=== PATIENT | female | born 1945 | race Caucasian/White ===

== ENCOUNTER 2020-10-28 16:20 | Inpatient (IN) | payer MEDICARE, SELFPAY ==
[2020-10-28] VITALS (16 sets, daily range): BP systolic 99–164; BP diastolic 54–88; PULSE 85–111; RESP 12–25; TEMP 36.2–36.7; O2SAT 71–97; BMI 27.8; BMI 26.6
--- NOTE | 2020-10-28 16:41 | EKG12_ITS ---
Test Reason : SOB Blood Pressure : / mmHG Vent. Rate : 099 BPM Atrial Rate : 099 BPM P-R Int : 132 ms QRS Dur : 082 ms QT Int : 358 ms P-R-T Axes : 063 085 086 degrees QTc Int : 459 ms Normal sinus rhythm Low voltage QRS Nonspecific ST abnormality Abnormal ECG Confirmed by DESTINY MOON, TRIPP ([id number]), digital editor JACQUES PATEL ([id number]) on 11/04/2020 7:03:20 AM Referred By: MÓNICA Confirmed By:FREIDA DIXON MD
--- NOTE | 2020-10-28 16:43 | ED.VISSUMM ---
- ER Visit Summary Date of Service: 10/28/20 Chief Complaint: [Shortness of breath] History of Present Illness: The patient is a 75 F [presents to the emergency department complaint shortness of breath that she states started today. Patient states that she only got sick today. She denies fever or significant cough. She is normally on some home O2 due to history of some COPD. Patient is not a very good historian. EMS apparently told nursing staff that patient is on day 10 of Covid. Patient denies any chest pain. Patient is currently on a nonrebreather and is doing better. Apparently her O2 sat was in the 50s on EMS arrival.] Physical Examination: [HEENT-PERRLA, EOMI. Cranial nerves II through XII grossly intact. TMs clear. Mucous membranes moist. No adenopathy. Cardiovascular-regular rate and rhythm without murmur or ectopy Lungs-good aeration bilaterally. Patient has some faint expiratory wheezes noted. Few rales in the bases. Mild tachypnea. No accessory muscle use or retractions. Abdomen-normoactive bowel sounds, soft, nontender, no rebound or rigidity, no peritoneal signs. Extremities-intact ?4, normal range of motion, normal pulses, atraumatic] Test Results: [EKG obtained on arrival shows sinus rhythm with a ventricular rate of 99 bpm with some nonspecific ST changes noted. Blood gas obtained on nonrebreather mask showed a pH of 7.459 CO2 of 35 PaO2 of 74 bicarb is 25 and O2 sat of 95%. CBC with differential showed a white count of 17.3, hemoglobin 13.5, hematocrit 40, platelets 506. Chemistries unremarkable. Troponin was 0.103. D-dimer was elevated 2.09. Chest x-ray interpreted by myself is bilateral faint infiltrates and radiology in agreement with their interpretation. CTA of the chest ordered and results will be pending] Emergency Department Course and Treatment: [Line established on arrival. Patient was given albuterol nebulizer 4 puffs and started on Solu-Medrol 125 mg IV. Patient started on Levaquin 750 mg IV. Patient was attempted to be weaned off nonrebreather mask unsuccessfully and was placed on BiPAP. Was discussed with hospitalist will evaluate patient for admission] Treatment Plan: [Admit to ICU] Disposition: [Admit] Impression: [COVID-19 pneumonia Hypoxemia/respiratory failure COPD exacerbation] This note was generated with [facility] dictation software. It may contain incorrect words, spelling, and punctuation that were not noted in review of the chart prior to signing ED Disposition - Plan for ED Patient: Referrals: NOT,DEFINED [NON-STAFF] -
--- NOTE | 2020-10-28 16:45 | NURSING ---
NO OLD EKGS
--- NOTE | 2020-10-28 16:58 | RAD_ITS ---
STUDY: X-RAY CHEST REASON FOR EXAM: Female, 75 years old. DAY 10 OF COVID, INCREASED SOB AND WEAKNESS AT HOME, FAMILY STATED PT LIPS AND FINGERS WERE CYANOTIC. TECHNIQUE: Single AP portable view of the chest. COMPARISON: None. FINDINGS: There is elevation the right hemidiaphragm. There is interstitial and groundglass increased opacities of the lungs. There is right lower lung granuloma. There is no demonstrated pleural abnormality. Normal size heart. Normal mediastinum and anju. Normal visualized pulmonary arteries. Normal visualized aortic arch and descending thoracic aorta. There is demineralization of the osseous structures. Normal visualized ribs, clavicles, and shoulders. There is no demonstrated abnormality of the visualized soft tissue structures of the upper abdomen. RAD/Chest 1 View (Portable) IMPRESSION: Interstitial infiltrates or edema. Electronically Signed: Tyler Vu MD at 18:00 EST , Service support ,
[2020-10-28] MEDS: MethylPREDNISolone 125 MG/2 ML Vial IV (17:31)
[2020-10-28 17:36] LABS: Base Excess 1 mmol/L (-2 to +2); Bicarbonate 25.2 mmol/L (22-26); Blood Gas Specimen Type ART; FI02 100; O2 Delivery Device NRB; PO2 74 mmHG (75-100); SITE R Brach; SO2 96 % (95-99); Total Carbon Dioxide 26 mmol/L; pCO2 35.5 mmHg (35-45); pH 7.46 (7.35-7.45)
[2020-10-28 17:50] LABS: Absolute Lymphocyte Count 1.07 X10^3/uL (0.83-4.51); Absolute Neutrophil Count 14.2 X10^3/uL (2.0-7.7); Basophil# 0.07 X10^3/uL; Basophil% 0.4 % (0-1); Eosinophil# 0.01 X10^3/uL; Eosinophils% 0.1 % (0-5); Hematocrit 40.2 % (37-47); Hemoglobin 13.5 g/dL (12.0-15.0); Lymphocyte # 1.07 X10^3/ul (4.0); Lymphocyte % 6.2 % (19-41); Mean Corp Hgb Conc 33.6 g/dL (32-36); Mean Corpuscular Hgb 31.3 pg (27.0-32.0); Mean Corpuscular Volume 93.3 fL (81-99); Mean Platelet Vol. 9.9 fl (6.2-12.0); Monocyte# 1.71 X10^3/uL; Monocyte% 9.9 % (0-10); NRBC Flagged by Analyzer 0 % (0-5); Neutrophil % 82.1 % (47-70); POSITIVE DIFFERENTIAL YES; Platelet Count 506 K/mm3 (150-450); RBC Distribution Width CV 13.8 % (11.6-14.6); RBC Distribution Width SD 47.6 fl (35.1-43.9); Red Blood Count 4.31 M/mm3 (4.2-5.4); White Blood Count 17.3 K/mm3 (4.4-11.0)
[2020-10-28 17:51] LABS: Differential Indicated SCAN CRITERIA MET
[2020-10-28 18:04] LABS: D-Dimer Quantitative (DVT/PE) 2.09 FEU/ug/m (0.27-0.49)
--- NOTE | 2020-10-28 18:12 | HP.PCM_ITS ---
Problem List (1) Acute and chronic respiratory failure with hypoxia Status: Acute (2) Pneumonia due to COVID-19 virus Status: Acute (3) Cardiac enzymes elevated Status: Acute (4) Anxiety and depression Status: Chronic (5) Chronic kidney disease (CKD), stage III (moderate) Status: Suspected Qualifiers: Chronic kidney disease stage 3 subtype: unspecified whether 3a or 3b Qualified Code(s): N18.30 - Chronic kidney disease, stage 3 unspecified (6) Former tobacco use Status: Chronic (7) Cognitive impairment Status: Suspected History of Present Illness Date of Admission: 10/28/20 Chief Complaint: COVID, possibly day with cough, dyspnea The patient is a 75 y/o F w/ PMHx: Chronic COPD with Chronic Hypoxic Respiratory Failure (2L q HS), Anxiety and Depression, Former Tobacco use (quit 30 years prior), suspected underlying mild cognitive impairment per discussion with family who presents to the [facility] ED on 10/28/20 with history of diagnosis of Covid approximately 10 days prior, onset of symptoms initially Monday with diagnosis on the Monday following with fever, chills, headaches, body aches, mildly sore mouth, cough and dyspnea which progressively worsening prompting PCP outpatient evaluation with initiation of prednisone 5-day course, eventually requiring 2 additional days but patient noted ongoing dyspnea and family noted patient to be extremely hypoxic therefore prompted ED evaluation. Patient's grandson who does live with her and helps take care of her has also been ill and was diagnosed with Covid previously but stayed away for approximately 10 days per discussion. There are several other family members are also Covid positive. Patient denies having had any nausea, emesis, diarrhea, abdominal cramping or pain or any alteration to her sense of taste or smell. Work-up in the ED included T 97.9, heart rate 95, BP 132/69, respiratory rate 24, initially 90% on a nonrebreather 12 L with eventually transition to 6 L nasal cannula however patient was 71% with eventual BiPAP needs, currently 97% on 40% FiO2 BiPAP, CBC with WC 17.3, hemoglobin 13.5, platelet 506 with left shift, D-dimer 2.09, ABG with pH 7.46, PO2 74, PCO2 35.5, BMP with BUN/creatinine 24/1.16, glucose 131, lactic acid 1.3, troponin 0.103, Covid PCR pending as initially patient was confused about her Covid status and timeline but now that is been clarified specifically with family and patient was tested at the [facility] urgent care, blood culture x2 pending per ED, chest x-ray with interstitial infiltrates and/or edema bilaterally however suspect likely bilateral pneumonia, CTPA pending given elevated D-dimer, EKG with sinus tachycardia with no acute evidence of ischemia with nonspecific changes. In the ED patient administered Levaquin, albuterol, Solu-Medrol. 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 Smoking Status: Former smoker - Quit ~ 30 years ago, prior to this ~ 1 ppd cigarette usage since teenager. Tobacco Use: Non-smoker Alcohol: None Drugs: None - *Family History Maternal History Items: Cancer, Hypertension Paternal History Items: Hypertension Review of Systems Constitutional: Reports: Anorexia, Chills, Fever, Malaise, Weakness, Fatigue. Denies: Weight Change HEENT: Reports: Head Aches, Sore Throat. Denies: Sinus Congestion, Sinus Drainage Cardiovascular: Denies: Chest Pain, Palpitations Respiratory: Reports: Cough, Shortness of Breath, Shortness of breath at rest, Shortness of breath upon exertion, Wheezing. Denies: Sputum production Gastrointestinal: Denies: Abdominal Pain, Nausea, Vomiting Genitourinary: Denies: Dysuria Musculoskeletal: Reports: Joint Pain, Muscle pain. Denies: Joint Tenderness Skin: Denies: Rash, Wounds Neurological: Reports: Confusion. Denies: Focal weakness, Numbness, Tingling Psychiatric: Reports: Anxiety, Depression. Denies: Homicidal Ideations, Suicidal Ideations Hematologic/ Lymphatic: Reports: Easy Bruising, Easy Bleeding VTE Information - Inpt Only VTE Present on Admission: No VTE Mechan Device Prophylaxis: SCD's VTE Pharm Prophylaxis ordered?: Yes Subjective: Seated upright in the ED bed, fatigued and ill-appearing, evident respiratory distress, BiPAP in place. Objective: Physical Examination: General: awake, alert, oriented to self, recent events, does admit that she has confusion which has been worsening over the last several months, remains cooperative, seated upright in the ED bed, fatigued and ill-appearing, evident respiratory distress, BiPAP in place. Skin: normal color, turgor, no icterus, cyanosis. HEENT: AT/NC, EOMI, PERRLA, dry MM, no carotid bruits or JVD noted, difficult assessment given BiPAP being placed. Lungs: Significantly diminished breath sounds throughout, greater bases, increased respiratory rate and effort, evident respiratory distress, BiPAP being placed, no rales, ronchi or wheezing. Heart: Mildly tachycardic with regular rhythm; no gallop, rub audible. Abdomen: soft, overweight, NTTP, ND, normal BS, no HSM. Extremities: no cyanosis, clubbing, or edema. Neurological: patient awake, alert, oriented as noted; cognitive function diminished baseline with likely underlying cognitive impairment, worsened from baseline given acute presentation; pupils equally reactive to light and accomodation; cranial nerves II-XII grossly normal, moving all 4 extremities, no focal deficits, strength severely globally decreased secondary to acute presentation. Psychiatric: affect appears fatigued, ill-appearing, evident respiratory distress as noted, no acute evidence of depressive or anxiety feelings. - Physical Exam Vitals/I&O's: Vital Signs Temp Pulse Resp BP Pulse Ox 97.9 F 95 24 H 132/69 H 93 10/28/20 17:26 10/28/20 17:26 10/28/20 17:26 10/28/20 17:26 10/28/20 17:52 Oxygen Flow Rate (L/min) 15 Oxygen Delivery Method Non-Rebreather Weight: 167 lb 5.294 oz Body Mass Index (BMI) 27.8 Laboratory Results 10/28/20 17:30: Specimen Type ART, Sample Site R Brach, pH 7.46 H, Bicarbonate Actual 25.2, Total CO2 26, Base Excess 1, O2 Saturation 96, O2 % 100, ABG pCO2 35.5, ABG pO2 74 L, O2 Delivery Device NRB 10/28/20 17:41: WBC 17.3 H, RBC 4.31, Hgb 13.5, Hct 40.2, MCV 93.3, MCH 31.3, MCHC 33.6, RDW Std Deviation 47.6 H, RDW Coeff of Jhoan 13.8, Plt Count 506 H, MPV 9.9, Immature Gran % (Auto) 1.300 H, Neut % (Auto) 82.1 H, Lymph % (Auto) 6.2 L, [place] % (Auto) 9.9, Eos % (Auto) 0.1, Baso % (Auto) 0.4, Absolute Neuts (auto) 14.2 H, Absolute Lymphs (auto) 1.07, Nucleated RBC % 0 10/28/20 17:41: D-Dimer Quant (PE/DVT) 2.09 H* 10/28/20 17:41: Sodium Cancelled, Potassium Cancelled, Chloride Cancelled, Carbon Dioxide Cancelled, Anion Gap Cancelled, BUN Cancelled, Creatinine Cancelled, Estim Creat Clear Calc Cancelled, Est GFR (MDRD) Af Amer Cancelled, Est GFR (MDRD) Non-Af Cancelled, BUN/Creatinine Ratio Cancelled, Glucose Cancelled, Calcium Cancelled, Troponin I Cancelled 10/28/20 17:41: Lactic Acid Pending Current Medications Levofloxacin (Levaquin Iv) 750 mg in 150 mls @ 100 mls/hr IV X1 ONE Stop: 10/28/20 19:31 Assessment/Plan All Active Problems Acute and chronic respiratory failure with hypoxia (Acute) Pneumonia due to COVID-19 virus (Acute) Cardiac enzymes elevated (Acute) The patient is a 75 y/o F w/ PMHx: Chronic COPD with Chronic Hypoxic Respiratory Failure, Anxiety and Depression, Former Tobacco use, suspected underlying mild cognitive impairment per discussion with family who presents to the [facility] ED on 10/28/20 with history of diagnosis of Covid approximately 10 days prior, onset of symptoms initially Monday with diagnosis on the Monday following with fever, chills, headaches, body aches, mildly sore mouth, cough and dyspnea which progressively worsening prompting PCP outpatient evaluation with initiation of prednisone 5-day course, eventually requiring 2 additional days but patient noted ongoing dyspnea. 1. Acute on Chronic Hypoxic Respiratory Failure secondary to Bilateral Pneumonia secondary to Acute Viral Syndrome, COVID-19: We will admit to the ICU, maintain on Covid precautions, continue BiPAP therapy, continue MDI inhaler, PRN albuterol, initiate IV Decadron as well as IV remdesivir given severity of current presentation but will defer further alterations to infectious disease, critical care/pulmonary physician also consulted, HOB, IS parameters w/ pending sputum cultures, respiratory viral panel and urine antigens, will obtain procalcitonin, CRP, CPK, Ferritin, LDH, Alk phos/AST/ALT, cycle cardiac enzymes given elevation upon presentation although likely demand, continue supportive care including q 2 hour turning including prone given no prone bed availability and judicious hydration, closely monitor for worsening status for ARDS and multiorgan failure. Pending CTPA and if noted pulmonary emboli will transition from Lovenox to heparin drip. 2. Indeterminate cardiac enzyme: Admission troponin 0 0.103, likely demand secondary to #1 with notable hypoxia, will cycle cardiac enzymes, maintain on telemetry monitoring, initiate aspirin therapy, defer immediate echocardiogram given status #1 and likely deferral but if enzymes further increase would request. 3. Chronic hypoxic respiratory failure with chronic COPD: Patient normally only on 2 L nightly however given presentation is noted continue treatment #1, will maintain on as needed albuterol inhaler and scheduled Advair inhaler, clarifying home inhaler regimen with family. 4. Anxiety and depression: We will continue patient home Wellbutrin and BuSpar regimen once clarified. 5. Suspected chronic Kidney Disease Stage III: Admission BUN/Cr 24/1.16, baseline renal function unclear but suspect likely chronic component, repeat CMP in AM. 6. Former tobacco use: Encourage continued tobacco cessation. 7. Suspected underlying chronic mild cognitive impairment, possible dementia: Family notes patient has had several months of increased confusion, suspect likely underlying cognitive impairment, no formal outpatient evaluation as of yet, complicates presentation. 8. DVT prophylaxis: SCDs, Lovenox per Covid protocol however if CTPA notable would initiate heparin drip. 9. CODE status: Patient FIDELIA is her daughter Elvira Villafana and living will is currently in place. Discussed CODE status at length including difference between FULL code, DNR-CCA and DNR-CC status. Following discussions about the differences in these status, requested DNR CCA, no intubation status. Patient status was frankly discussed with family and they understand that she is in critical condition. Advanced Care Planning Face to Face Time: 16 minutes. Inpatient E&M: 97524 Init Hosp L3 Procedures: [id number] Advncd Care Plan 30 Min
[2020-10-28 18:20] LABS: Lactic Acid 1.3 mmol/L (0.4-1.9)
[2020-10-28 18:28] LABS: Differential Comment SCANNED
[2020-10-28] MEDS: levoFLOXacin IV 750 MG/150 ML BAG 100 MG IV (18:28)
[2020-10-28 18:38] LABS: Anion Gap 6 (5-15); BUN 24 mg/dL (7-18); BUN/Creat Ratio 20.7 RATIO (10-20); Calcium,Total 9.3 mg/dL (8.5-10.1); Chloride 101 mmol/L (98-107); Creatinine, Serum 1.16 mg/dL (0.55-1.02); EST Glomerular Filtration Rate 49 mL/min (>60); Est Glom Filt Rate - Afr Amer 59 mL/min (>60); Estimated Creatinine Clearance 38.87 ml/min; Glucose 131 mg/dL (74-106); Potassium 4.4 mmol/L (3.5-5.1); Sodium Level 136 mmol/L (136-145)
--- NOTE | 2020-10-28 18:55 | CT_ITS ---
We are attempting to reach an attending provider to discuss findings. An addendum with communication details will be sent when the communication is complete. STUDY: CTA CHEST REASON FOR EXAM: Female, 75 years old. +COVID. INCREASE SOB. HX OF COPD RADIATION DOSAGE (If Supplied By Facility): CTDIvol = ( 15.98 ) mGy, DLP = ( 435.78 ) mGycm TECHNIQUE: The examination was performed with the intravenous administration of 100mL Isovue-370. Post-processing of the angiographic images was performed, with multiplanar reformation and 3D reconstruction. Individualized dose optimization techniques were used for this CT. COMPARISON: Chest x-ray. FINDINGS: Normal enhancement of the main pulmonary artery and right and left pulmonary arteries. There are filling defects involving the peripheral pulmonary arteries on the right and left consistent with embolism , including series 2 image 102/244 . There is atherosclerotic tortuosity of the aortic arch and descending thoracic aorta. There is no demonstrated aortic dissection. Normal heart and pericardium. Normal mediastinum. There are calcified right hilar lymph nodes. Normal visualized trachea and bronchi. The lungs are well expanded. There is emphysema of the lungs. There are moderate interstitial septal groundglass increased opacities. There are lower lung granulomas. Normal pleura. Normal chest wall structures. There are degenerative changes of thoracic spine. There is 1.9 cm left adrenal nodule. There is small hiatal hernia. CT/CTA Chest W/WO Contrast IMPRESSION: Pulmonary embolism. Emphysema with interstitial edema or infiltrates. Electronically Signed: Tyler Vu MD at 19:28 EST , Service support ,
--- NOTE | 2020-10-28 19:54 | CPS ---
Pt. going to CT at this time. BiPAP put on 'stand-by' mode for the time being. Non-rebreather placed on pt., with no respiratory stress noted. Pt. SpO2 = 96% at this time, and she prefers wearing non-rebreather mask at this time.
[2020-10-28 20:15] LABS: Probe Check PASS; Specimen Processing Control PASS
[2020-10-28 20:26] LABS: Partial Thromboplast Time 31.4 Seconds (24.1-36.2)
[2020-10-28] MEDS: Heparin Injection (Vial) 5,000 UNIT/ML VIAL 5000 UNIT IV (20:47)
[2020-10-28] MEDS: HEPARIN/D5w 25,000 UNITS 25,000 UNITS/250 ML IV.SOLN. 11 UNITS IV (20:47)
[2020-10-28 21:56] LABS: Alkaline Phosphatase 112 U/L (45-117)
[2020-10-28 22:00] LABS: AST(SGOT) 44 U/L (15-37); Alanine Aminotransfer ALT/SGPT 78 U/L (13-56); Albumin, Serum 2.4 g/dL (3.2-5.0); Alkaline Phosphatase 112 U/L (45-117); Bilirubin, Direct 0.31 mg/dL (0.00-0.30); Ferritin 721 ng/mL (8-252); Globulin 4.7 g/dL (2.2-4.2); LDH 327 U/L (84-246); Magnesium 2.5 mg/dL (1.6-2.6); Protein, Total 7.1 g/dL (6.4-8.2)
[2020-10-28 22:10] LABS: BNP,B-Type NATRIURETIC PEPTIDE 58.4 pg/mL (0-100)
[2020-10-28] MEDS: 0.9% Saline Lock 10 ML Syringe IV (22:31)
[2020-10-28] MEDS: Famotidine 20 MG Tablet PO (22:56)
[2020-10-28] MEDS: dexAMETHasone 4 MG/ML Vial 6 MG IV (22:56)
[2020-10-28 23:23] LABS: Procalcitonin 0.25 ng/mL (0.00-0.09)
[2020-10-29] VITALS (26 sets, daily range): BP systolic 111–166; BP diastolic 53–103; PULSE 75–104; RESP 12–26; TEMP 36.6–37.2; O2SAT 89–96
--- NOTE | 2020-10-29 00:30 | NURSING ---
Verified home medications with patient's daughter, Pauly.
--- NOTE | 2020-10-29 00:37 | CPS ---
Pt on 15L HFNC, SpO2 95%
[2020-10-29 02:57] LABS: Partial Thromboplast Time 72.6 Seconds (24.1-36.2)
[2020-10-29 05:58] LABS: Absolute Lymphocyte Count 0.52 X10^3/uL (0.83-4.51); Absolute Neutrophil Count 9.4 X10^3/uL (2.0-7.7); Basophil# 0.02 X10^3/uL; Basophil% 0.2 % (0-1); Hematocrit 37.8 % (37-47); Hemoglobin 12.4 g/dL (12.0-15.0); Lymphocyte # 0.52 X10^3/ul (4.0); Lymphocyte % 4.9 % (19-41); Mean Corp Hgb Conc 32.8 g/dL (32-36); Mean Corpuscular Hgb 31.2 pg (27.0-32.0); Mean Platelet Vol. 8.9 fl (6.2-12.0); Monocyte# 0.44 X10^3/uL; Monocyte% 4.2 % (0-10); NRBC Flagged by Analyzer 0 % (0-5); Neutrophil # 9.38 X10^3/uL (2.7-7.7); Neutrophil % 89.3 % (47-70); POSITIVE DIFFERENTIAL YES; Platelet Count 435 K/mm3 (150-450); RBC Distribution Width CV 13.1 % (11.6-14.6); RBC Distribution Width SD 46.3 fl (35.1-43.9); Red Blood Count 3.98 M/mm3 (4.2-5.4); White Blood Count 10.5 K/mm3 (4.4-11.0)
[2020-10-29 05:59] LABS: Differential Indicated SCAN CRITERIA MET
[2020-10-29 06:21] LABS: ALB/GLOB Ratio 0.5 RATIO (0.9-2.4); AST(SGOT) 31 U/L (15-37); Alanine Aminotransfer ALT/SGPT 65 U/L (13-56); Albumin, Serum 2.1 g/dL (3.2-5.0); Alkaline Phosphatase 103 U/L (45-117); Anion Gap 7 (5-15); BUN 21 mg/dL (7-18); BUN/Creat Ratio 22.6 RATIO (10-20); Calcium,Total 8.5 mg/dL (8.5-10.1); Chloride 100 mmol/L (98-107); Cholesterol 174 mg/dL (200); Creatinine, Serum 0.93 mg/dL (0.55-1.02); EST Glomerular Filtration Rate 63 mL/min (>60); Est Glom Filt Rate - Afr Amer 76 mL/min (>60); Estimated Creatinine Clearance 48.48 ml/min; Globulin 4.6 g/dL (2.2-4.2); Glucose 181 mg/dL (74-106); High Density Lipoprotein 58 mg/dL; Potassium 4.4 mmol/L (3.5-5.1); Protein, Total 6.7 g/dL (6.4-8.2); Sodium Level 136 mmol/L (136-145); Triglycerides 100 mg/dL; Very Low Density Lipoprotein 20 mg/dL (5-40)
--- NOTE | 2020-10-29 06:24 | CON.PCM_ITS ---
Reason for Consult Date of Consultation: 10/29/20 Reason for Consultation: Acute hypoxemic respiratory failure History of Present Illness: The patient is a 75-year-old female, with a history as outlined below, who presented to the emergency department on October 28 with complaints of shortness of breath and hypoxemia. The patient has an apparent history of COPD of unknown severity along with chronic hypoxemic respiratory failure with a baseline 2 L/min oxygen requirement, primarily at night. The patient was initially diagnosed with Covid 10 days ago and was managed as an outpatient by her PCP with a 1 week course of prednisone. Despite this, the patient remained symptomatic. The patient does report that she is on Symbicort and Spiriva for her COPD, but does not follow with a pastoral assistant on an outpatient basis. On presentation to the emergency department, the patient was noted to be afebrile but was tachycardic and tachypneic. She was also hypoxemic, initially requiring a nonrebreather mask. Initial laboratory evaluation revealed an elevated white blood cell count to 17,000. D-dimer was elevated to 2.09. Chemistry profile was notable for a creatinine of 1.16. Lactate was within normal limits. AST and ALT were mildly increased to 44 and 78, respectively. Coronavirus PCR was positive. CTA chest was completed which revealed bilateral pulmonary emboli, along with bilateral emphysematous changes and interstitial groundglass changes. The patient was started on systemic anticoagulation along with remdesivir and Decadron. She was placed on BiPAP and admitted to the medical intensive care unit for further management. Past Medical History Past Medical History (Chronic Problems): Chronic Problems Anxiety and depression (Chronic) Former tobacco use (Chronic) Allergies No Known Allergies Allergy (Verified 10/28/20 16:27) Home Medications: Ambulatory Orders Medication Instructions Recorded Bupropion HCl [Wellbutrin Sr] 300 mg PO DAILY 10/28/20 Albuterol Inhaler [Ventolin Hfa 1 puff INHALATION PRN PRN 10/29/20 (SP)] Budesonide/Formoterol 160/4.5 2 puff DAILY 10/29/20 [Symbicort 160/4.5 Mcg Inhaler (SP)] Ipratropium/Albuterol Sulfate 3 ml INHALATION Q4H.RT 10/29/20 [Duoneb] Tiotropium [place] [Spiriva 2 puff DAILY 10/29/20 Respimat] busPIRone [Buspar] 15 mg PO DAILY 10/29/20 Surgical History: total hip arthroplasty Psychiatric History: Anxiety, Depression 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 Smoking Status: Former smoker Tobacco Use: Non-smoker Alcohol: None Drugs: None - *Family History Maternal History Items: Cancer, Hypertension Paternal History Items: Hypertension Review of Systems Constitutional: Reports: Chills, Malaise, Weakness, Fatigue Eyes: Denies: Blurred vision, Double vision HEENT: Denies: Head Aches, Sinus Congestion, Sinus Drainage Cardiovascular: Denies: Chest Pain, Palpitations Respiratory: Reports: Cough, Shortness of Breath Gastrointestinal: Denies: Abdominal Pain, Nausea, Vomiting Genitourinary: Denies: Dysuria Musculoskeletal: Denies: Joint Pain, Joint Tenderness Skin: Denies: Rash, Wounds Neurological: Reports: Headaches Psychiatric: Denies: Anxiety, Depression, Homicidal Ideations, Suicidal Ideations Hematologic/ Lymphatic: Denies: Easy Bruising, Easy Bleeding Patient Problems: Active and Suspected Problems Acute and chronic respiratory failure with hypoxia (Acute) Pneumonia due to COVID-19 virus (Acute) Cardiac enzymes elevated (Acute) Chronic kidney disease (CKD), stage III (moderate) (Suspected) Cognitive impairment (Suspected) Objective: The patient's most recent lab work, culture data and imaging studies have all been personally reviewed. Coronavirus PCR was positive on October 28. Respiratory viral panel was negative. Blood and sputum cultures are pending. - Physical Exam Vitals/I&O's: Vital Signs Temp Pulse Resp BP Pulse Ox 98.4 F 78 24 H 128/72 H 91 10/29/20 04:00 10/29/20 05:00 10/29/20 05:00 10/29/20 05:00 10/29/20 05:00 Oxygen Flow Rate (L/min) 50 Oxygen Delivery Method Airvo Weight: 162 lb 7.691 oz Body Mass Index (BMI) 26.6 Intake and Output for Last 24 Hours 10/27/20 10/28/20 10/29/20 23:59 23:59 23:59 Intake Total 150 / 150 250 / 250 Balance 150 / 150 250 / 250 General: Alert, Cooperative, No apparent distress HEENT: Atraumatic, PERRLA, Normocephalic Oral: No Gingival or Mucosal Lesions/ Ulcerations Neck: Supple, No Nodes, Trachea Midline Lungs: - - Globally diminished air movement throughout without any appreciable wheezes, rales or rhonchi. Speaking in complete sentences. No accessory muscle use. Cardiovascular: Regular rate, Regular Rhythm Abdomen: Bowel Sounds Present, Soft, Non Tender Extremities: No clubbing, No cyanosis, No edema Skin: No breakdown Musculoskeletal: No Tenderness to Palpation of Joints or Extremities Lymphatic: No Cervical, Supraclavicular, or Inguinal Adenopathy Neurological: Cranial nerves II-XII grossly intact, Neuro grossly intact Psych/Mental Status: Flat Affect Labs (Last 48 Hours) 10/28/20 10/28/20 10/28/20 17:30 17:41 17:41 WBC 17.3 H RBC 4.31 Hgb 13.5 Hct 40.2 MCV 93.3 MCH 31.3 MCHC 33.6 RDW Std Deviation 47.6 H RDW Coeff of Jhoan 13.8 Plt Count 506 H MPV 9.9 Immature Gran % (Auto) 1.300 H Neut % (Auto) 82.1 H Lymph % (Auto) 6.2 L Rabun % (Auto) 9.9 Eos % (Auto) 0.1 Baso % (Auto) 0.4 Absolute Neuts (auto) 14.2 H Absolute Lymphs (auto) 1.07 Nucleated RBC % 0 Differential Comment SCANNED Diff Path Review May foll APTT D-Dimer Quant (PE/DVT) 2.09 H* Specimen Type ART Sample Site R Brach pH 7.46 H Bicarbonate Actual 25.2 Total CO2 26 Base Excess 1 O2 Saturation 96 O2 % 100 ABG pCO2 35.5 ABG pO2 74 L O2 Delivery Device NRB Sodium Potassium Chloride Carbon Dioxide Anion Gap BUN Creatinine Estim Creat Clear Calc Est GFR (MDRD) Af Amer Est GFR (MDRD) Non-Af BUN/Creatinine Ratio Glucose Lactic Acid Calcium Magnesium Ferritin Total Bilirubin Direct Bilirubin AST ALT Alkaline Phosphatase Lactate Dehydrogenase Troponin I C-React Prot Ext Range B-Natriuretic Peptide Total Protein Albumin Globulin Albumin/Globulin Ratio Triglycerides Cholesterol LDL Cholesterol VLDL Cholesterol HDL Cholesterol Procalcitonin COVID-19 (ZAKIYA) 10/28/20 10/28/20 10/28/20 17:41 17:41 17:41 WBC RBC Hgb Hct MCV MCH MCHC RDW Std Deviation RDW Coeff of Jhoan Plt Count MPV Immature Gran % (Auto) Neut % (Auto) Lymph % (Auto) Rabun % (Auto) Eos % (Auto) Baso % (Auto) Absolute Neuts (auto) Absolute Lymphs (auto) Nucleated RBC % Differential Comment Diff Path Review APTT 31.4 D-Dimer Quant (PE/DVT) Specimen Type Sample Site pH Bicarbonate Actual Total CO2 Base Excess O2 Saturation O2 % ABG pCO2 ABG pO2 O2 Delivery Device Sodium Cancelled Potassium Cancelled Chloride Cancelled Carbon Dioxide Cancelled Anion Gap Cancelled BUN Cancelled Creatinine Cancelled Estim Creat Clear Calc Cancelled Est GFR (MDRD) Af Amer Cancelled Est GFR (MDRD) Non-Af Cancelled BUN/Creatinine Ratio Cancelled Glucose Cancelled Lactic Acid 1.3 Calcium Cancelled Magnesium Ferritin Total Bilirubin Direct Bilirubin AST ALT Alkaline Phosphatase Lactate Dehydrogenase Troponin I Cancelled C-React Prot Ext Range B-Natriuretic Peptide Total Protein Albumin Globulin Albumin/Globulin Ratio Triglycerides Cholesterol LDL Cholesterol VLDL Cholesterol HDL Cholesterol Procalcitonin COVID-19 (ZAKIYA) 10/28/20 10/28/20 10/28/20 17:41 17:41 17:41 WBC RBC Hgb Hct MCV MCH MCHC RDW Std Deviation RDW Coeff of Jhoan Plt Count MPV Immature Gran % (Auto) Neut % (Auto) Lymph % (Auto) Rabun % (Auto) Eos % (Auto) Baso % (Auto) Absolute Neuts (auto) Absolute Lymphs (auto) Nucleated RBC % Differential Comment Diff Path Review APTT D-Dimer Quant (PE/DVT) Specimen Type Sample Site pH Bicarbonate Actual Total CO2 Base Excess O2 Saturation O2 % ABG pCO2 ABG pO2 O2 Delivery Device Sodium Potassium Chloride Carbon Dioxide Anion Gap BUN Creatinine Estim Creat Clear Calc Est GFR (MDRD) Af Amer Est GFR (MDRD) Non-Af BUN/Creatinine Ratio Glucose Lactic Acid Calcium Magnesium 2.5 Ferritin 721 H Total Bilirubin 0.70 Direct Bilirubin 0.31 H AST 44 H ALT 78 H Alkaline Phosphatase 112 112 Lactate Dehydrogenase 327 H Troponin I C-React Prot Ext Range 178.00 H B-Natriuretic Peptide 58.4 Total Protein 7.1 Albumin 2.4 L Globulin 4.7 H Albumin/Globulin Ratio Triglycerides Cholesterol LDL Cholesterol VLDL Cholesterol HDL Cholesterol Procalcitonin COVID-19 (ZAKIYA) 10/28/20 10/28/20 10/28/20 18:11 18:33 22:00 WBC RBC Hgb Hct MCV MCH MCHC RDW Std Deviation RDW Coeff of Jhoan Plt Count MPV Immature Gran % (Auto) Neut % (Auto) Lymph % (Auto) Rabun % (Auto) Eos % (Auto) Baso % (Auto) Absolute Neuts (auto) Absolute Lymphs (auto) Nucleated RBC % Differential Comment Diff Path Review APTT D-Dimer Quant (PE/DVT) Specimen Type Sample Site pH Bicarbonate Actual Total CO2 Base Excess O2 Saturation O2 % ABG pCO2 ABG pO2 O2 Delivery Device Sodium 136 Potassium 4.4 Chloride 101 Carbon Dioxide 29.0 Anion Gap 6 BUN 24 H Creatinine 1.16 H Estim Creat Clear Calc 38.87 Est GFR (MDRD) Af Amer 59 L Est GFR (MDRD) Non-Af 49 L BUN/Creatinine Ratio 20.7 H Glucose 131 H Lactic Acid Calcium 9.3 Magnesium Ferritin Total Bilirubin Direct Bilirubin AST ALT Alkaline Phosphatase Lactate Dehydrogenase Troponin I 0.103 H C-React Prot Ext Range B-Natriuretic Peptide Total Protein Albumin Globulin Albumin/Globulin Ratio Triglycerides Cholesterol LDL Cholesterol VLDL Cholesterol HDL Cholesterol Procalcitonin 0.25 H COVID-19 (ZAKIYA) Positive 10/29/20 10/29/20 10/29/20 02:35 02:35 05:40 WBC 10.5 RBC 3.98 L Hgb 12.4 Hct 37.8 MCV 95.0 MCH 31.2 MCHC 32.8 RDW Std Deviation 46.3 H RDW Coeff of Jhoan 13.1 Plt Count 435 MPV 8.9 Immature Gran % (Auto) 1.400 H Neut % (Auto) 89.3 H Lymph % (Auto) 4.9 L Rabun % (Auto) 4.2 Eos % (Auto) 0.0 Baso % (Auto) 0.2 Absolute Neuts (auto) 9.4 H Absolute Lymphs (auto) 0.52 L Nucleated RBC % 0 Differential Comment Diff Path Review APTT 72.6 H D-Dimer Quant (PE/DVT) Specimen Type Sample Site pH Bicarbonate Actual Total CO2 Base Excess O2 Saturation O2 % ABG pCO2 ABG pO2 O2 Delivery Device Sodium Potassium Chloride Carbon Dioxide Anion Gap BUN Creatinine Estim Creat Clear Calc Est GFR (MDRD) Af Amer Est GFR (MDRD) Non-Af BUN/Creatinine Ratio Glucose Lactic Acid Calcium Magnesium Ferritin Total Bilirubin Direct Bilirubin AST ALT Alkaline Phosphatase Lactate Dehydrogenase Troponin I 0.042 C-React Prot Ext Range B-Natriuretic Peptide Total Protein Albumin Globulin Albumin/Globulin Ratio Triglycerides Cholesterol LDL Cholesterol VLDL Cholesterol HDL Cholesterol Procalcitonin COVID-19 (ZAKIYA) 10/29/20 10/29/20 05:40 05:40 WBC RBC Hgb Hct MCV MCH MCHC RDW Std Deviation RDW Coeff of Jhoan Plt Count MPV Immature Gran % (Auto) Neut % (Auto) Lymph % (Auto) Rab[place] % (Auto) Eos % (Auto) Baso % (Auto) Absolute Neuts (auto) Absolute Lymphs (auto) Nucleated RBC % Differential Comment Diff Path Review APTT D-Dimer Quant (PE/DVT) Specimen Type Sample Site pH Bicarbonate Actual Total CO2 Base Excess O2 Saturation O2 % ABG pCO2 ABG pO2 O2 Delivery Device Sodium 136 Potassium 4.4 Chloride 100 Carbon Dioxide 29.0 Anion Gap 7 BUN 21 H Creatinine 0.93 Estim Creat Clear Calc 48.48 Est GFR (MDRD) Af Amer 76 Est GFR (MDRD) Non-Af 63 BUN/Creatinine Ratio 22.6 H Glucose 181 H Lactic Acid Calcium 8.5 Magnesium Ferritin Total Bilirubin 0.40 Direct Bilirubin AST 31 ALT 65 H Alkaline Phosphatase 103 Lactate Dehydrogenase Troponin I 0.030 C-React Prot Ext Range B-Natriuretic Peptide Total Protein 6.7 Albumin 2.1 L Globulin 4.6 H Albumin/Globulin Ratio 0.5 L Triglycerides 100 Cholesterol 174 LDL Cholesterol 96 VLDL Cholesterol 20 HDL Cholesterol 58 Procalcitonin COVID-19 (ZAKIYA) Microbiology 10/28/20 18:33 Mucosa - Nasopharyngeal Respiratory Panel (PCR) - Final Clinical Impression(s) from Imaging Studies Chest X-Ray 10/28/20 16:58 IMPRESSION: Interstitial infiltrates or edema. Electronically Signed: Tyler Vu MD at 18:00 EST , Service support , Chest CTA 10/28/20 18:55 IMPRESSION: Pulmonary embolism. Emphysema with interstitial edema or infiltrates. Electronically Signed: Tyler Vu MD at 19:28 EST , Service support , ADDENDUM: 10/28/20 1941 IMPRESSION: Pulmonary embolism. Emphysema with interstitial edema or infiltrates. N.B. : The above information has been verbally conveyed by Tyler Vu MD to Perry Flores MD, on 10/28/2020 19:34:49 (ET). Electronically Signed: Tyler Vu MD at 19:28 EST , Service support , Current Medications Acetaminophen (Acetaminophen 650 Mg Suppository) 650 mg RECTAL Q4H PRN PRN PRN Reason: Pain Score 1-10/Temp > 100.7 F Acetaminophen (Acetaminophen 325 Mg Tablet) 650 mg PO Q6H PRN PRN PRN Reason: Pain Score 1-10/Temp > 100.7 F Al Hydroxide/Mg Hydroxide (Mag Hydrox/Al Hydrox/Simeth 30 Ml Udc) 30 ml PO Q6H PRN PRN PRN Reason: Gastric Burning Albuterol Sulfate (Albuterol Ih 8.5 Gm (Proair) Inhaler (200 Puffs)) 4 - 8 puff INHALATION Q4H PRN PRN PRN Reason: Dyspnea, wheezing Albuterol Sulfate (Albuterol Ih 8.5 Gm (Proair) Inhaler (200 Puffs)) 2 puff INHALATION Q6HWA.RT MIRNA Aspirin (Aspirin E.C. 81 Mg Tablet) 81 mg PO DAILY MIRNA Bupropion HCl (Bupropion (Xl) 300 Mg Tablet.Xl) 300 mg PO DAILY [facility] Dexamethasone Sodium Phosphate (Dexamethasone 4 Mg/Ml Vial) 6 mg IV DAILY [facility] Last Admin: 10/28/20 22:56 Dose: 6 mg Documented by: Famotidine (Famotidine 20 Mg Tablet) 20 mg PO BID [facility] Last Admin: 10/28/20 22:56 Dose: 20 mg Documented by: Guaifenesin (Guaifenesin 10 Ml Udc (200mg/10ml)) 10 ml PO Q4H PRN PRN PRN Reason: COUGH Heparin Sodium (Porcine) (Heparin Injection (Vial) 5,000 Unit/Ml Vial) 0 unit IV UD PRN; Protocol PRN Reason: dose adjustment Hydralazine HCl (Hydralazine 20 Mg/Ml Vial) 10 mg IV Q4H PRN PRN PRN Reason: SBP > 160 Heparin Sodium/Dextrose () 25,000 units in 250 mls @ 11 mls/hr IV .[id number] [facility]; Protocol Last Admin: 10/28/20 20:47 Dose: 1,100 units/hr, 11 mls/hr Documented by: Remdesivir 100 mg/ Sodium (Chloride) 250 mls @ 125 mls/hr IV Q24H [facility] Stop: 11/01/20 23:59 Sodium Chloride () 250 mls @ 15 mls/hr IV .[id number] PRN PRN Reason: Saline Flush Sodium Chloride () 250 mls @ 15 mls/hr IV .[id number] PRN PRN Reason: Additional IVPB Infusion Magnesium Hydroxide (Magnesium Hydroxide 30 Ml Udc) 30 ml PO DAILY PRN PRN PRN Reason: Constipation Melatonin (Melatonin 3 Mg Tablet) 3 mg PO QHS PRN PRN PRN Reason: INSOMNIA Nitroglycerin (Nitroglycerin (Inpatient Use) 0.4 Mg Tab.Subl) 0.4 mg SUBLINGUAL Q5M PRN PRN Reason: CARDIAC/CHEST PAIN Ondansetron HCl (Ondansetron 4 Mg/2 Ml Vial) 4 mg IV Q8H PRN PRN PRN Reason: NAUSEA/VOMITING Prochlorperazine Edisylate (Prochlorperazine 10 Mg/2 Ml Vial) 5 mg IV Q4H PRN PRN PRN Reason: Breakthrough Nausea/Vomiting Psyllium Hydrophilic Mucilloid (Psyllium 1 Packet) 1 packet PO DAILY PRN PRN PRN Reason: Constipation Senna/Docusate Sodium (Senna/Docusate Sodium 1 Tablet) 2 tablet PO BID PRN PRN PRN Reason: Constipation Sodium Chloride (0.9% Saline Lock 10 Ml Syringe) 10 - 40 ml IV UD PRN PRN Reason: SALINE FLUSH Last Admin: 10/28/20 22:31 Dose: 40 ml Documented by: Throat Lozenges (Benzocaine/Menthol 1 Lozenge) 1 lozenge MUCOUS MEM Q2H PRN PRN PRN Reason: SORE THROAT Assessment/Plan Active and Suspected Problems Acute and chronic respiratory failure with hypoxia (Acute) Pneumonia due to COVID-19 virus (Acute) Cardiac enzymes elevated (Acute) Chronic kidney disease (CKD), stage III (moderate) (Suspected) Cognitive impairment (Suspected) RECOMMENDATIONS: 1. Continue Decadron with plans to complete a 10-day treatment course. 2. Continue remdesivir. Monitor liver and renal function accordingly. 3. Continue to wean FiO2 to maintain oxygen saturations at or above 90%. 4. Start scheduled bronchodilators today. 5. The patient can be transitioned from a heparin infusion to Eliquis today from my perspective. IMPRESSIONS: 1. Acute on chronic hypoxemic respiratory failure secondary to COVID-19 pneumonia and bilateral pulmonary emboli The patient does have an apparent history of COPD along with a 2 L/min baseline oxygen requirement, primarily just at nighttime. She presented with worsening shortness of breath and hypoxemia. Although the patient did require BiPAP utilization, she has been weaned to heated high flow oxygen, which will be continued. Plan to wean FiO2 to maintain oxygen saturations at or above 90%. We will start scheduled bronchodilators today. Remdesivir and Decadron will be continued. Liver and renal function will be monitored accordingly. The patient can likely be transition from a continuous heparin infusion over to Eliquis today. 2. Anxiety/depression/tobacco dependency in remission/mild cognitive impairment Complicates care, management, recovery and prognosis. Continue home medications as indicated. This note was generated with [employer] dictation software. It may contain incorrect words, spelling, and punctuation that were not noted in checking the note before signing. Inpatient E&M: 78524 Init Hosp L3
--- NOTE | 2020-10-29 06:30 | NURSING ---
O2 sats dropped to mid 60s on monitor, entered pt room, airvo in place in bilateral nares, sats dropping to 50s, notified Dr. Hsu and under his direct supervision this RN increased airvo delivered O2 to 80%. Patient recovering slowly, O2 sats up to 90.
[2020-10-29] MEDS: dexAMETHasone 4 MG/ML Vial 6 MG IV (09:39)
[2020-10-29] MEDS: Famotidine 20 MG Tablet PO ×2 (09:39→21:11)
[2020-10-29] MEDS: buPROPion (XL) 300 MG TABLET.XL PO (09:39)
[2020-10-29] MEDS: Aspirin E.C. 81 MG Tablet PO (09:39)
[2020-10-29 10:12] LABS: Partial Thromboplast Time 50.8 Seconds (24.1-36.2)
[2020-10-29] MEDS: Heparin Injection (Vial) 5,000 UNIT/ML VIAL IV (10:25)
--- NOTE | 2020-10-29 10:30 | PN_ITS ---
Patient Problems: Active and Suspected Problems Acute and chronic respiratory failure with hypoxia (Acute) Pneumonia due to COVID-19 virus (Acute) Cardiac enzymes elevated (Acute) Chronic kidney disease (CKD), stage III (moderate) (Suspected) Cognitive impairment (Suspected) Subjective: Patient lying in bed on AIRVO. Appears comfortable at this time but respiratory at bedside and they have had to titrate up her oxygen doses. Patient reiterates that she does not want intubated and does not want cardiopulmonary resuscitation in the event of a cardiac arrest. Vitals/I&O's: Vital Signs Temp Pulse Resp BP Pulse Ox 98.4 F 82 20 H 153/54 H 92 10/29/20 04:00 10/29/20 07:35 10/29/20 07:35 10/29/20 06:00 10/29/20 07:35 Oxygen Flow Rate (L/min) 50 Oxygen Delivery Method Airvo Weight: 73.7 kg Body Mass Index (BMI) 26.6 Intake and Output for Last 24 Hours 10/27/20 10/28/20 10/29/20 23:59 23:59 23:59 Intake Total 150 / 150 399.23 / 399.23 Balance 150 / 150 399.23 / 399.23 General: Alert, Oriented x3, Cooperative, No apparent distress, Well developed, Well nourished, - - Older white female lying in bed, appears comfortable at this time, no acute respiratory distress but remains on AIRVO HEENT: Atraumatic, PERRLA, EOMI, Normocephalic, EAC Clear Oral: Moist Mucosa, No Gingival or Mucosal Lesions/ Ulcerations, - - Edentulous Neck: Supple, No JVD, No Nodes, Trachea Midline, Thyroid Normal Size and Texture Lungs: No rhonchi, No wheeze, No rales, Diminished Cardiovascular: Regular rate, Regular Rhythm, Normal S1, Normal S2, No Ectopic Activity, Murmur, No rub noted, No Gallop Abdomen: Bowel Sounds Present, Soft, Non Tender, Non-Distended, No hernias noted Extremities: No clubbing, No cyanosis, No edema, Capillary Refill Less than 3 Seconds, Peripheral Pulses Normal Skin: No rashes, No breakdown, - - Pale skin Musculoskeletal: No Tenderness to Palpation of Joints or Extremities, No Muscle Wasting, Arthritic Changes Lymphatic: No Cervical, Supraclavicular, or Inguinal Adenopathy Neurological: Cranial nerves II-XII grossly intact, Neuro grossly intact, Muscle tone normal, Coordination normal Psych/Mental Status: Normal Affect, Appropriate, Alert and oriented to time, place, person, mood and affect Microbiology Past 72 Hours 10/28/20 09:45 Urine, Random Legionella Antigen - Final 10/28/20 09:45 Urine, Random Streptococcus pneumoniae Antigen (M - Final 10/29/20 04:15 Sputum, Expectorated/Coughed Gram Stain - Final 10/28/20 18:33 Mucosa - Nasopharyngeal Respiratory Panel (PCR) - Final Laboratory Results 10/28/20 17:30: Specimen Type ART, Sample Site R Brach, pH 7.46 H, Bicarbonate Actual 25.2, Total CO2 26, Base Excess 1, O2 Saturation 96, O2 % 100, ABG pCO2 35.5, ABG pO2 74 L, O2 Delivery Device NRB 10/28/20 17:41: WBC 17.3 H, RBC 4.31, Hgb 13.5, Hct 40.2, MCV 93.3, MCH 31.3, MCHC 33.6, RDW Std Deviation 47.6 H, RDW Coeff of Jhoan 13.8, Plt Count 506 H, MPV 9.9, Immature Gran % (Auto) 1.300 H, Neut % (Auto) 82.1 H, Lymph % (Auto) 6.2 L, [place] % (Auto) 9.9, Eos % (Auto) 0.1, Baso % (Auto) 0.4, Absolute Neuts (auto) 14.2 H, Absolute Lymphs (auto) 1.07, Nucleated RBC % 0, Differential Comment SCANNED, Diff Path Review February10/28/20 17:41: D-Dimer Quant (PE/DVT) 2.09 H* 10/28/20 17:41: Sodium Cancelled, Potassium Cancelled, Chloride Cancelled, Carbon Dioxide Cancelled, Anion Gap Cancelled, BUN Cancelled, Creatinine Cancelled, Estim Creat Clear Calc Cancelled, Est GFR (MDRD) Af Amer Cancelled, Est GFR (MDRD) Non-Af Cancelled, BUN/Creatinine Ratio Cancelled, Glucose Cancelled, Calcium Cancelled, Troponin I Cancelled 10/28/20 17:41: Lactic Acid 1.3 10/28/20 17:41: APTT 31.4 10/28/20 17:41: Alkaline Phosphatase 112 10/28/20 17:41: Magnesium 2.5, Ferritin 721 H, Total Bilirubin 0.70, Direct Bilirubin 0.31 H, AST 44 H, ALT 78 H, Alkaline Phosphatase 112, Lactate Dehydrogenase 327 H, C-React Prot Ext Range 178.00 H, Total Protein 7.1, Albumin 2.4 L, Globulin 4.7 H 10/28/20 17:41: B-Natriuretic Peptide 58.4 10/28/20 18:11: Sodium 136, Potassium 4.4, Chloride 101, Carbon Dioxide 29.0, Anion Gap 6, BUN 24 H, Creatinine 1.16 H, Estim Creat Clear Calc 38.87, Est GFR (MDRD) Af Amer 59 L, Est GFR (MDRD) Non-Af 49 L, BUN/Creatinine Ratio 20.7 H, Glucose 131 H, Calcium 9.3, Troponin I 0.103 H 10/28/20 18:33: COVID-19 (ZAKIYA) Positive 10/28/20 22:00: Procalcitonin 0.25 H 10/29/20 02:35: Troponin I 0.042 10/29/20 02:35: APTT 72.6 H 10/29/20 05:40: WBC 10.5, RBC 3.98 L, Hgb 12.4, Hct 37.8, MCV 95.0, MCH 31.2, MCHC 32.8, RDW Std Deviation 46.3 H, RDW Coeff of Jhoan 13.1, Plt Count 435, MPV 8.9, Immature Gran % (Auto) 1.400 H, Neut % (Auto) 89.3 H, Lymph % (Auto) 4.9 L, [place] % (Auto) 4.2, Eos % (Auto) 0.0, Baso % (Auto) 0.2, Absolute Neuts (auto) 9.4 H, Absolute Lymphs (auto) 0.52 L, Nucleated RBC % 0 10/29/20 05:40: Sodium 136, Potassium 4.4, Chloride 100, Carbon Dioxide 29.0, Anion Gap 7, BUN 21 H, Creatinine 0.93, Estim Creat Clear Calc 48.48, Est GFR (MDRD) Af Amer 76, Est GFR (MDRD) Non-Af 63, BUN/Creatinine Ratio 22.6 H, Glucose 181 H, Calcium 8.5, Total Bilirubin 0.40, AST 31, ALT 65 H, Alkaline Phosphatase 103, Total Protein 6.7, Albumin 2.1 L, Globulin 4.6 H, Albumin/Globulin Ratio 0.5 L, Triglycerides 100, Cholesterol 174, LDL Cholesterol 96, VLDL Cholesterol 20, HDL Cholesterol 58 10/29/20 05:40: Troponin I 0.030 10/29/20 09:45: APTT 50.8 H Current Medications Acetaminophen (Acetaminophen 650 Mg Suppository) 650 mg RECTAL Q4H PRN PRN PRN Reason: Pain Score 1-10/Temp > 100.7 F Acetaminophen (Acetaminophen 325 Mg Tablet) 650 mg PO Q6H PRN PRN PRN Reason: Pain Score 1-10/Temp > 100.7 F Al Hydroxide/Mg Hydroxide (Mag Hydrox/Al Hydrox/Simeth 30 Ml Udc) 30 ml PO Q6H PRN PRN PRN Reason: Gastric Burning Albuterol Sulfate (Albuterol Ih 8.5 Gm (Proair) Inhaler (200 Puffs)) 4 - 8 puff INHALATION Q4H PRN PRN PRN Reason: Dyspnea, wheezing Albuterol/Ipratropium (Ipratropium/Albuterol Sulfate 3 Ml Ampul.Neb) 3 ml INHALATION Q4HWA.RT [facility] Aspirin (Aspirin E.C. 81 Mg Tablet) 81 mg PO DAILY [facility] Last Admin: 10/29/20 09:39 Dose: 81 mg Documented by: Bupropion HCl (Bupropion (Xl) 300 Mg Tablet.Xl) 300 mg PO DAILY [facility] Last Admin: 10/29/20 09:39 Dose: 300 mg Documented by: Dexamethasone Sodium Phosphate (Dexamethasone 4 Mg/Ml Vial) 6 mg IV DAILY [facility] Stop: 11/06/20 10:01 Last Admin: 10/29/20 09:39 Dose: 6 mg Documented by: Famotidine (Famotidine 20 Mg Tablet) 20 mg PO BID [facility] Last Admin: 10/29/20 09:39 Dose: 20 mg Documented by: Guaifenesin (Guaifenesin 10 Ml Udc (200mg/10ml)) 10 ml PO Q4H PRN PRN PRN Reason: COUGH Heparin Sodium (Porcine) (Heparin Injection (Vial) 5,000 Unit/Ml Vial) 0 unit IV UD PRN; Protocol PRN Reason: dose adjustment Last Admin: 10/29/20 10:25 Dose: 1,000 unit Documented by: Hydralazine HCl (Hydralazine 20 Mg/Ml Vial) 10 mg IV Q4H PRN PRN PRN Reason: SBP > 160 Heparin Sodium/Dextrose () 25,000 units in 250 mls @ 11 mls/hr IV .[id number] MIRNA; Protocol Last Titration: 10/29/20 10:21 Dose: 1,200 units/hr, 12 mls/hr Documented by: Remdesivir 100 mg/ Sodium (Chloride) 250 mls @ 125 mls/hr IV Q24H MIRNA Stop: 11/01/20 23:59 Sodium Chloride () 250 mls @ 15 mls/hr IV .[id number] PRN PRN Reason: Saline Flush Sodium Chloride () 250 mls @ 15 mls/hr IV .[id number] PRN PRN Reason: Additional IVPB Infusion Magnesium Hydroxide (Magnesium Hydroxide 30 Ml Udc) 30 ml PO DAILY PRN PRN PRN Reason: Constipation Melatonin (Melatonin 3 Mg Tablet) 3 mg PO QHS PRN PRN PRN Reason: INSOMNIA Nitroglycerin (Nitroglycerin (Inpatient Use) 0.4 Mg Tab.Subl) 0.4 mg SUBLINGUAL Q5M PRN PRN Reason: CARDIAC/CHEST PAIN Ondansetron HCl (Ondansetron 4 Mg/2 Ml Vial) 4 mg IV Q8H PRN PRN PRN Reason: NAUSEA/VOMITING Prochlorperazine Edisylate (Prochlorperazine 10 Mg/2 Ml Vial) 5 mg IV Q4H PRN PRN PRN Reason: Breakthrough Nausea/Vomiting Psyllium Hydrophilic Mucilloid (Psyllium 1 Packet) 1 packet PO DAILY PRN PRN PRN Reason: Constipation Senna/Docusate Sodium (Senna/Docusate Sodium 1 Tablet) 2 tablet PO BID PRN PRN PRN Reason: Constipation Sodium Chloride (0.9% Saline Lock 10 Ml Syringe) 10 - 40 ml IV UD PRN PRN Reason: SALINE FLUSH Last Admin: 10/28/20 22:31 Dose: 40 ml Documented by: Throat Lozenges (Benzocaine/Menthol 1 Lozenge) 1 lozenge MUCOUS MEM Q2H PRN PRN PRN Reason: SORE THROAT STROKE Vital Signs/Narrative: Vital Signs Pulse Resp Pulse Ox 10/29/20 07:35 82 20 H 92 Medical Necessity - Tobacco Use Smoking Status: Former smoker Tobacco Use: Non-smoker Assessment/Plan All Active Problems Acute and chronic respiratory failure with hypoxia (Acute) Pneumonia due to COVID-19 virus (Acute) Cardiac enzymes elevated (Acute) Acute on chronic hypoxic respiratory failure secondary to COVID-19 pneumonia/COPD/pulmonary embolism -COVID-19 positive on admission-10/28/2020 -Patient currently on air Vo with a flow of 50 L/min and FiO2 of 91% -SpO2 is 90 to 95% on current settings -Continue remdesivir day 2 of 5 and Decadron day 2 of 10 -Supportive care -Pulmonary toilet -Initiate Eliquis 10 mg twice daily for 7 days then transition to 5 mg twice cordell ly -Appreciate pulmonary input Acute bilateral PE -Initiate Eliquis 10 mg twice daily for 7 days then transition to 5 mg twice daily -D/C heparin drip Leukocytosis -Resolved JAY on CKD 2-3 -Resolved -Creatinine now 0.93 Indeterminate troponin -Has trended down and almost normalized at this time -Likely demand ischemia or elevation related to acute PE -No further work-up needed at this time Mild transaminitis -Likely related to acute Covid infection -Has already trended down and almost normalized COPD -Bronchodilators as ordered -Patient is O2 dependent at baseline at at bedtime with 2 L Anxiety/depression -Continue home regimen Thrombocytosis -Resolved Mild cognitive impairment -We will continue to monitor -May make delirium worse DVT prophylaxis -Fully anticoagulated Code status -DNR CCA no intubation Inpatient E&M: 43802 Subs Hosp L3
--- NOTE | 2020-10-29 11:10 | PCM.HP.ID ---
Problem List (1) Pneumonia due to COVID-19 virus Status: Acute Reason for Consult: covid Consulted by: Dr. Jorge History of Present Illness: The patient is a 75 year old F presented with about 10 days of cough, aches, headache, sore throat. Concern for covid given course of prednisone, sx worsened, came to ED, dx with PE. Pcr (+). On remdesivir, hep gtt, dex. Feeling a little better today. Full ROS performed and neg except as noted above. - Medical History Past Medical History (Chronic Problems): Chronic Problems Anxiety and depression (Chronic) Former tobacco use (Chronic) Allergies/Adverse Reactions: Allergies No Known Allergies Allergy (Verified 10/28/20 16:27) Home Medications: Ambulatory Orders Medication Instructions Recorded Bupropion HCl [Wellbutrin Sr] 300 mg PO DAILY 10/28/20 Albuterol Inhaler [Ventolin Hfa 1 puff INHALATION PRN PRN 10/29/20 (SP)] Budesonide/Formoterol 160/4.5 2 puff DAILY 10/29/20 [Symbicort 160/4.5 Mcg Inhaler (SP)] Ipratropium/Albuterol Sulfate 3 ml INHALATION Q4H.RT 10/29/20 [Duoneb] Tiotropium [place] [Spiriva 2 puff DAILY 10/29/20 Respimat] busPIRone [Buspar] 15 mg PO DAILY 10/29/20 - Social History SMOKING STATUS:: Former smoker Vital Signs Temp Pulse Resp BP Pulse Ox 99 F 83 25 H 135/64 H 94 10/29/20 10:00 10/29/20 10:00 10/29/20 10:00 10/29/20 10:00 10/29/20 10:00 Oxygen Flow Rate (L/min) 50 Oxygen Delivery Method Airvo Weight: 73.7 kg Body Mass Index (BMI) 26.6 Microbiology Past 72 Hours 10/28/20 09:45 Legionella Antigen - Final Urine, Random Streptococcus pneumoniae Antigen (M - Final 10/29/20 04:15 Gram Stain - Final Sputum, Expectorated/Coughed 10/28/20 18:33 Respiratory Panel (PCR) - Final Mucosa - Nasopharyngeal Laboratory Tests Past 24 Hrs 10/28/20 10/28/20 10/28/20 17:30 17:41 17:41 WBC 17.3 H RBC 4.31 Hgb 13.5 Hct 40.2 MCV 93.3 MCH 31.3 MCHC 33.6 RDW Std Deviation 47.6 H RDW Coeff of Jhoan 13.8 Plt Count 506 H MPV 9.9 Immature Gran % (Auto) 1.300 H Neut % (Auto) 82.1 H Lymph % (Auto) 6.2 L [place] % (Auto) 9.9 Eos % (Auto) 0.1 Baso % (Auto) 0.4 Absolute Neuts (auto) 14.2 H Absolute Lymphs (auto) 1.07 Nucleated RBC % 0 Differential Comment SCANNED Diff Path Review May foll APTT D-Dimer Quant (PE/DVT) 2.09 H* Specimen Type ART Sample Site R Brach pH 7.46 H Bicarbonate Actual 25.2 Total CO2 26 Base Excess 1 O2 Saturation 96 O2 % 100 ABG pCO2 35.5 ABG pO2 74 L O2 Delivery Device NRB Sodium Potassium Chloride Carbon Dioxide Anion Gap BUN Creatinine Estim Creat Clear Calc Est GFR (MDRD) Af Amer Est GFR (MDRD) Non-Af BUN/Creatinine Ratio Glucose Lactic Acid Calcium Magnesium Ferritin Total Bilirubin Direct Bilirubin AST ALT Alkaline Phosphatase Lactate Dehydrogenase Troponin I C-React Prot Ext Range B-Natriuretic Peptide Total Protein Albumin Globulin Albumin/Globulin Ratio Triglycerides Cholesterol LDL Cholesterol VLDL Cholesterol HDL Cholesterol Procalcitonin COVID-19 (ZAKIYA) 10/28/20 10/28/20 10/28/20 17:41 17:41 17:41 WBC RBC Hgb Hct MCV MCH MCHC RDW Std Deviation RDW Coeff of Jhoan Plt Count MPV Immature Gran % (Auto) Neut % (Auto) Lymph % (Auto) [place] % (Auto) Eos % (Auto) Baso % (Auto) Absolute Neuts (auto) Absolute Lymphs (auto) Nucleated RBC % Differential Comment Diff Path Review APTT 31.4 D-Dimer Quant (PE/DVT) Specimen Type Sample Site pH Bicarbonate Actual Total CO2 Base Excess O2 Saturation O2 % ABG pCO2 ABG pO2 O2 Delivery Device Sodium Cancelled Potassium Cancelled Chloride Cancelled Carbon Dioxide Cancelled Anion Gap Cancelled BUN Cancelled Creatinine Cancelled Estim Creat Clear Calc Cancelled Est GFR (MDRD) Af Amer Cancelled Est GFR (MDRD) Non-Af Cancelled BUN/Creatinine Ratio Cancelled Glucose Cancelled Lactic Acid 1.3 Calcium Cancelled Magnesium Ferritin Total Bilirubin Direct Bilirubin AST ALT Alkaline Phosphatase Lactate Dehydrogenase Troponin I Cancelled C-React Prot Ext Range B-Natriuretic Peptide Total Protein Albumin Globulin Albumin/Globulin Ratio Triglycerides Cholesterol LDL Cholesterol VLDL Cholesterol HDL Cholesterol Procalcitonin COVID-19 (ZAKIYA) 10/28/20 10/28/20 10/28/20 17:41 17:41 17:41 WBC RBC Hgb Hct MCV MCH MCHC RDW Std Deviation RDW Coeff of Jhoan Plt Count MPV Immature Gran % (Auto) Neut % (Auto) Lymph % (Auto) [place] % (Auto) Eos % (Auto) Baso % (Auto) Absolute Neuts (auto) Absolute Lymphs (auto) Nucleated RBC % Differential Comment Diff Path Review APTT D-Dimer Quant (PE/DVT) Specimen Type Sample Site pH Bicarbonate Actual Total CO2 Base Excess O2 Saturation O2 % ABG pCO2 ABG pO2 O2 Delivery Device Sodium Potassium Chloride Carbon Dioxide Anion Gap BUN Creatinine Estim Creat Clear Calc Est GFR (MDRD) Af Amer Est GFR (MDRD) Non-Af BUN/Creatinine Ratio Glucose Lactic Acid Calcium Magnesium 2.5 Ferritin 721 H Total Bilirubin 0.70 Direct Bilirubin 0.31 H AST 44 H ALT 78 H Alkaline Phosphatase 112 112 Lactate Dehydrogenase 327 H Troponin I C-React Prot Ext Range 178.00 H B-Natriuretic Peptide 58.4 Total Protein 7.1 Albumin 2.4 L Globulin 4.7 H Albumin/Globulin Ratio Triglycerides Cholesterol LDL Cholesterol VLDL Cholesterol HDL Cholesterol Procalcitonin COVID-19 (ZAKIYA) 10/28/20 10/28/20 10/28/20 18:11 18:33 22:00 WBC RBC Hgb Hct MCV MCH MCHC RDW Std Deviation RDW Coeff of Jhoan Plt Count MPV Immature Gran % (Auto) Neut % (Auto) Lymph % (Auto) [place] % (Auto) Eos % (Auto) Baso % (Auto) Absolute Neuts (auto) Absolute Lymphs (auto) Nucleated RBC % Differential Comment Diff Path Review APTT D-Dimer Quant (PE/DVT) Specimen Type Sample Site pH Bicarbonate Actual Total CO2 Base Excess O2 Saturation O2 % ABG pCO2 ABG pO2 O2 Delivery Device Sodium 136 Potassium 4.4 Chloride 101 Carbon Dioxide 29.0 Anion Gap 6 BUN 24 H Creatinine 1.16 H Estim Creat Clear Calc 38.87 Est GFR (MDRD) Af Amer 59 L Est GFR (MDRD) Non-Af 49 L BUN/Creatinine Ratio 20.7 H Glucose 131 H Lactic Acid Calcium 9.3 Magnesium Ferritin Total Bilirubin Direct Bilirubin AST ALT Alkaline Phosphatase Lactate Dehydrogenase Troponin I 0.103 H C-React Prot Ext Range B-Natriuretic Peptide Total Protein Albumin Globulin Albumin/Globulin Ratio Triglycerides Cholesterol LDL Cholesterol VLDL Cholesterol HDL Cholesterol Procalcitonin 0.25 H COVID-19 (ZAKIYA) Positive 10/29/20 10/29/20 10/29/20 02:35 02:35 05:40 WBC 10.5 RBC 3.98 L Hgb 12.4 Hct 37.8 MCV 95.0 MCH 31.2 MCHC 32.8 RDW Std Deviation 46.3 H RDW Coeff of Jhoan 13.1 Plt Count 435 MPV 8.9 Immature Gran % (Auto) 1.400 H Neut % (Auto) 89.3 H Lymph % (Auto) 4.9 L [place] % (Auto) 4.2 Eos % (Auto) 0.0 Baso % (Auto) 0.2 Absolute Neuts (auto) 9.4 H Absolute Lymphs (auto) 0.52 L Nucleated RBC % 0 Differential Comment Diff Path Review APTT 72.6 H D-Dimer Quant (PE/DVT) Specimen Type Sample Site pH Bicarbonate Actual Total CO2 Base Excess O2 Saturation O2 % ABG pCO2 ABG pO2 O2 Delivery Device Sodium Potassium Chloride Carbon Dioxide Anion Gap BUN Creatinine Estim Creat Clear Calc Est GFR (MDRD) Af Amer Est GFR (MDRD) Non-Af BUN/Creatinine Ratio Glucose Lactic Acid Calcium Magnesium Ferritin Total Bilirubin Direct Bilirubin AST ALT Alkaline Phosphatase Lactate Dehydrogenase Troponin I 0.042 C-React Prot Ext Range B-Natriuretic Peptide Total Protein Albumin Globulin Albumin/Globulin Ratio Triglycerides Cholesterol LDL Cholesterol VLDL Cholesterol HDL Cholesterol Procalcitonin COVID-19 (ZAKIYA) 10/29/20 10/29/20 10/29/20 05:40 05:40 09:45 WBC RBC Hgb Hct MCV MCH MCHC RDW Std Deviation RDW Coeff of Jhoan Plt Count MPV Immature Gran % (Auto) Neut % (Auto) Lymph % (Auto) [place] % (Auto) Eos % (Auto) Baso % (Auto) Absolute Neuts (auto) Absolute Lymphs (auto) Nucleated RBC % Differential Comment Diff Path Review APTT 50.8 H D-Dimer Quant (PE/DVT) Specimen Type Sample Site pH Bicarbonate Actual Total CO2 Base Excess O2 Saturation O2 % ABG pCO2 ABG pO2 O2 Delivery Device Sodium 136 Potassium 4.4 Chloride 100 Carbon Dioxide 29.0 Anion Gap 7 BUN 21 H Creatinine 0.93 Estim Creat Clear Calc 48.48 Est GFR (MDRD) Af Amer 76 Est GFR (MDRD) Non-Af 63 BUN/Creatinine Ratio 22.6 H Glucose 181 H Lactic Acid Calcium 8.5 Magnesium Ferritin Total Bilirubin 0.40 Direct Bilirubin AST 31 ALT 65 H Alkaline Phosphatase 103 Lactate Dehydrogenase Troponin I 0.030 C-React Prot Ext Range B-Natriuretic Peptide Total Protein 6.7 Albumin 2.1 L Globulin 4.6 H Albumin/Globulin Ratio 0.5 L Triglycerides 100 Cholesterol 174 LDL Cholesterol 96 VLDL Cholesterol 20 HDL Cholesterol 58 Procalcitonin COVID-19 (ZAKIYA) - Other Studies Radiology: [] reviewed Other Studies: [] Route of nutrition/ use of supplements: [] Nutritional Intake: [] IV Site: [] Vera Catheter: [] - Physical Exam General: Alert, Cooperative, No apparent distress HEENT: Atraumatic, PERRLA, EOMI Neck: Supple, No Nodes Lungs: Diminished Cardiovascular: Regular rate, Regular Rhythm Abdomen: Soft, Non Tender, Non-Distended Extremities: No edema Skin: No rashes IV Site: Peripheral, without redness Musculoskeletal: No Tenderness to Palpation of Joints or Extremities Neurological: Cranial nerves II-XII grossly intact - Assessment/Plan Antibiotics: [] Assessment/Plan: [] Active and Suspected Problems Acute and chronic respiratory failure with hypoxia (Acute) Pneumonia due to COVID-19 virus (Acute) Cardiac enzymes elevated (Acute) Chronic kidney disease (CKD), stage III (moderate) (Suspected) Cognitive impairment (Suspected) covid with hypoxia, PE with chronic lung disease and CKD - on dex, hep gtt, and remdesivir. On airvo will order monitoring labs. Will follow, thank you, d/w Dr. Jorge
[2020-10-29] MEDS: Ipratropium/Albuterol Sulfate 3 ML AMPUL.NEB INHALATION ×3 (11:54→19:37)
[2020-10-29] MEDS: 0.9% Saline Lock 10 ML Syringe IV (12:15)
[2020-10-29 13:30] LABS: Pathologist Review Reviewed
--- NOTE | 2020-10-29 13:49 | CASEMGMT ---
RN CM Note: attempted x 2 to contact pt in room. She is currently not able to participate in assessment. Deferred until tomorrow. Rodrigo MEDINAN RN ACM
[2020-10-29] MEDS: APIXABAN 5 MG TABLET 10 MG PO ×2 (14:14→21:12)
--- NOTE | 2020-10-29 22:21 | PCS.PANDOC ---
PANDEMIC DOCUMENTATION INITIATED: Date: 10/29/20 Time: 1899
[2020-10-30] VITALS (18 sets, daily range): BP systolic 114–132; BP diastolic 59–67; PULSE 79–101; RESP 18–24; TEMP 36.3–36.9; O2SAT 81–97
[2020-10-30] MEDS: 0.9% Saline Lock 10 ML Syringe IV ×2 (00:29→11:10)
--- NOTE | 2020-10-30 06:49 | PN_ITS ---
Patient Problems: Active and Suspected Problems Acute and chronic respiratory failure with hypoxia (Acute) Pneumonia due to COVID-19 virus (Acute) Cardiac enzymes elevated (Acute) Chronic kidney disease (CKD), stage III (moderate) (Suspected) Cognitive impairment (Suspected) Subjective: The patient was seen and examined at the bedside this morning. Events from the last 24 hours have been reviewed. The patient is currently afebrile, hemodynamically stable and maintaining appropriate oxygen saturations on Airvo heated high flow with an FiO2 requirement of 76%. The patient is currently documented to be overall net -900 mL for the hospital admission. Liver and renal function are stable. Objective: The patient's most recent lab work, culture data and imaging studies have all been personally reviewed. Coronavirus PCR was positive on October 28. Respiratory viral panel was negative. Blood and sputum cultures are pending. - Physical Exam Vitals/I&O's: Vital Signs Temp Pulse Resp BP Pulse Ox 98.5 F 89 18 114/67 92 10/30/20 06:26 10/30/20 06:26 10/30/20 06:26 10/30/20 06:26 10/30/20 06:26 Oxygen Flow Rate (L/min) 13 Oxygen Delivery Method Airvo Weight: 159 lb 7.718 oz Body Mass Index (BMI) 26.6 Intake and Output for Last 24 Hours 10/28/20 10/29/20 10/30/20 23:59 23:59 23:59 Intake Total 150 / 150 1030.03 / 1030.03 550 / 550 Output Total 2150 / 2150 500 / 500 Balance 150 / 150 -1119.97 / -1119.97 50 / 50 General: Alert, Cooperative, No apparent distress HEENT: Atraumatic, Normocephalic Oral: No Gingival or Mucosal Lesions/ Ulcerations Neck: Supple, No Nodes, Trachea Midline Lungs: No rhonchi, No wheeze, No rales, Diminished Cardiovascular: Regular rate, Regular Rhythm Abdomen: Bowel Sounds Present, Soft, Non Tender Extremities: No clubbing, No cyanosis, No edema Skin: No breakdown Lymphatic: No Cervical, Supraclavicular, or Inguinal Adenopathy Neurological: Cranial nerves II-XII grossly intact, Neuro grossly intact Psych/Mental Status: Flat Affect Labs (Last 48 Hours) 10/28/20 10/28/20 10/28/20 17:30 17:41 17:41 WBC 17.3 H RBC 4.31 Hgb 13.5 Hct 40.2 MCV 93.3 MCH 31.3 MCHC 33.6 RDW Std Deviation 47.6 H RDW Coeff of Jhoan 13.8 Plt Count 506 H MPV 9.9 Immature Gran % (Auto) 1.300 H Neut % (Auto) 82.1 H Lymph % (Auto) 6.2 L Magoffin % (Auto) 9.9 Eos % (Auto) 0.1 Baso % (Auto) 0.4 Absolute Neuts (auto) 14.2 H Absolute Lymphs (auto) 1.07 Nucleated RBC % 0 Differential Comment SCANNED Diff Path Review Reviewed APTT D-Dimer Quant (PE/DVT) 2.09 H* Specimen Type ART Sample Site R Brach pH 7.46 H Bicarbonate Actual 25.2 Total CO2 26 Base Excess 1 O2 Saturation 96 O2 % 100 ABG pCO2 35.5 ABG pO2 74 L O2 Delivery Device NRB Sodium Potassium Chloride Carbon Dioxide Anion Gap BUN Creatinine Estim Creat Clear Calc Est GFR (MDRD) Af Amer Est GFR (MDRD) Non-Af BUN/Creatinine Ratio Glucose Lactic Acid Calcium Magnesium Ferritin Total Bilirubin Direct Bilirubin AST ALT Alkaline Phosphatase Lactate Dehydrogenase Troponin I C-React Prot Ext Range B-Natriuretic Peptide Total Protein Albumin Globulin Albumin/Globulin Ratio Triglycerides Cholesterol LDL Cholesterol VLDL Cholesterol HDL Cholesterol Procalcitonin COVID-19 (ZAKIYA) 10/28/20 10/28/20 10/28/20 17:41 17:41 17:41 WBC RBC Hgb Hct MCV MCH MCHC RDW Std Deviation RDW Coeff of Jhoan Plt Count MPV Immature Gran % (Auto) Neut % (Auto) Lymph % (Auto) [place] % (Auto) Eos % (Auto) Baso % (Auto) Absolute Neuts (auto) Absolute Lymphs (auto) Nucleated RBC % Differential Comment Diff Path Review APTT 31.4 D-Dimer Quant (PE/DVT) Specimen Type Sample Site pH Bicarbonate Actual Total CO2 Base Excess O2 Saturation O2 % ABG pCO2 ABG pO2 O2 Delivery Device Sodium Cancelled Potassium Cancelled Chloride Cancelled Carbon Dioxide Cancelled Anion Gap Cancelled BUN Cancelled Creatinine Cancelled Estim Creat Clear Calc Cancelled Est GFR (MDRD) Af Amer Cancelled Est GFR (MDRD) Non-Af Cancelled BUN/Creatinine Ratio Cancelled Glucose Cancelled Lactic Acid 1.3 Calcium Cancelled Magnesium Ferritin Total Bilirubin Direct Bilirubin AST ALT Alkaline Phosphatase Lactate Dehydrogenase Troponin I Cancelled C-React Prot Ext Range B-Natriuretic Peptide Total Protein Albumin Globulin Albumin/Globulin Ratio Triglycerides Cholesterol LDL Cholesterol VLDL Cholesterol HDL Cholesterol Procalcitonin COVID-19 (ZAKIYA) 10/28/20 10/28/20 10/28/20 17:41 17:41 17:41 WBC RBC Hgb Hct MCV MCH MCHC RDW Std Deviation RDW Coeff of Jhoan Plt Count MPV Immature Gran % (Auto) Neut % (Auto) Lymph % (Auto) [place] % (Auto) Eos % (Auto) Baso % (Auto) Absolute Neuts (auto) Absolute Lymphs (auto) Nucleated RBC % Differential Comment Diff Path Review APTT D-Dimer Quant (PE/DVT) Specimen Type Sample Site pH Bicarbonate Actual Total CO2 Base Excess O2 Saturation O2 % ABG pCO2 ABG pO2 O2 Delivery Device Sodium Potassium Chloride Carbon Dioxide Anion Gap BUN Creatinine Estim Creat Clear Calc Est GFR (MDRD) Af Amer Est GFR (MDRD) Non-Af BUN/Creatinine Ratio Glucose Lactic Acid Calcium Magnesium 2.5 Ferritin 721 H Total Bilirubin 0.70 Direct Bilirubin 0.31 H AST 44 H ALT 78 H Alkaline Phosphatase 112 112 Lactate Dehydrogenase 327 H Troponin I C-React Prot Ext Range 178.00 H B-Natriuretic Peptide 58.4 Total Protein 7.1 Albumin 2.4 L Globulin 4.7 H Albumin/Globulin Ratio Triglycerides Cholesterol LDL Cholesterol VLDL Cholesterol HDL Cholesterol Procalcitonin COVID-19 (ZAKIYA) 10/28/20 10/28/20 10/28/20 18:11 18:33 22:00 WBC RBC Hgb Hct MCV MCH MCHC RDW Std Deviation RDW Coeff of Jhoan Plt Count MPV Immature Gran % (Auto) Neut % (Auto) Lymph % (Auto) [place] % (Auto) Eos % (Auto) Baso % (Auto) Absolute Neuts (auto) Absolute Lymphs (auto) Nucleated RBC % Differential Comment Diff Path Review APTT D-Dimer Quant (PE/DVT) Specimen Type Sample Site pH Bicarbonate Actual Total CO2 Base Excess O2 Saturation O2 % ABG pCO2 ABG pO2 O2 Delivery Device Sodium 136 Potassium 4.4 Chloride 101 Carbon Dioxide 29.0 Anion Gap 6 BUN 24 H Creatinine 1.16 H Estim Creat Clear Calc 38.87 Est GFR (MDRD) Af Amer 59 L Est GFR (MDRD) Non-Af 49 L BUN/Creatinine Ratio 20.7 H Glucose 131 H Lactic Acid Calcium 9.3 Magnesium Ferritin Total Bilirubin Direct Bilirubin AST ALT Alkaline Phosphatase Lactate Dehydrogenase Troponin I 0.103 H C-React Prot Ext Range B-Natriuretic Peptide Total Protein Albumin Globulin Albumin/Globulin Ratio Triglycerides Cholesterol LDL Cholesterol VLDL Cholesterol HDL Cholesterol Procalcitonin 0.25 H COVID-19 (ZAKIYA) Positive 10/29/20 10/29/20 10/29/20 02:35 02:35 05:40 WBC 10.5 RBC 3.98 L Hgb 12.4 Hct 37.8 MCV 95.0 MCH 31.2 MCHC 32.8 RDW Std Deviation 46.3 H RDW Coeff of Jhoan 13.1 Plt Count 435 MPV 8.9 Immature Gran % (Auto) 1.400 H Neut % (Auto) 89.3 H Lymph % (Auto) 4.9 L Mag[place] % (Auto) 4.2 Eos % (Auto) 0.0 Baso % (Auto) 0.2 Absolute Neuts (auto) 9.4 H Absolute Lymphs (auto) 0.52 L Nucleated RBC % 0 Differential Comment Diff Path Review APTT 72.6 H D-Dimer Quant (PE/DVT) Specimen Type Sample Site pH Bicarbonate Actual Total CO2 Base Excess O2 Saturation O2 % ABG pCO2 ABG pO2 O2 Delivery Device Sodium Potassium Chloride Carbon Dioxide Anion Gap BUN Creatinine Estim Creat Clear Calc Est GFR (MDRD) Af Amer Est GFR (MDRD) Non-Af BUN/Creatinine Ratio Glucose Lactic Acid Calcium Magnesium Ferritin Total Bilirubin Direct Bilirubin AST ALT Alkaline Phosphatase Lactate Dehydrogenase Troponin I 0.042 C-React Prot Ext Range B-Natriuretic Peptide Total Protein Albumin Globulin Albumin/Globulin Ratio Triglycerides Cholesterol LDL Cholesterol VLDL Cholesterol HDL Cholesterol Procalcitonin COVID-19 (ZAKIYA) 10/29/20 10/29/20 10/29/20 05:40 05:40 09:45 WBC RBC Hgb Hct MCV MCH MCHC RDW Std Deviation RDW Coeff of Jhoan Plt Count MPV Immature Gran % (Auto) Neut % (Auto) Lymph % (Auto) [place] % (Auto) Eos % (Auto) Baso % (Auto) Absolute Neuts (auto) Absolute Lymphs (auto) Nucleated RBC % Differential Comment Diff Path Review APTT 50.8 H D-Dimer Quant (PE/DVT) Specimen Type Sample Site pH Bicarbonate Actual Total CO2 Base Excess O2 Saturation O2 % ABG pCO2 ABG pO2 O2 Delivery Device Sodium 136 Potassium 4.4 Chloride 100 Carbon Dioxide 29.0 Anion Gap 7 BUN 21 H Creatinine 0.93 Estim Creat Clear Calc 48.48 Est GFR (MDRD) Af Amer 76 Est GFR (MDRD) Non-Af 63 BUN/Creatinine Ratio 22.6 H Glucose 181 H Lactic Acid Calcium 8.5 Magnesium Ferritin Total Bilirubin 0.40 Direct Bilirubin AST 31 ALT 65 H Alkaline Phosphatase 103 Lactate Dehydrogenase Troponin I 0.030 C-React Prot Ext Range B-Natriuretic Peptide Total Protein 6.7 Albumin 2.1 L Globulin 4.6 H Albumin/Globulin Ratio 0.5 L Triglycerides 100 Cholesterol 174 LDL Cholesterol 96 VLDL Cholesterol 20 HDL Cholesterol 58 Procalcitonin COVID-19 (ZAKIYA) 10/30/20 10/30/20 05:40 05:40 WBC 18.8 H RBC 4.03 L Hgb 12.5 Hct 38.8 MCV 96.3 MCH 31.0 MCHC 32.2 RDW Std Deviation 47.9 H RDW Coeff of Jhoan 13.4 Plt Count 511 H MPV 9.1 Immature Gran % (Auto) Neut % (Auto) Lymph % (Auto) [place] % (Auto) Eos % (Auto) Baso % (Auto) Absolute Neuts (auto) Absolute Lymphs (auto) Nucleated RBC % Differential Comment Diff Path Review APTT D-Dimer Quant (PE/DVT) Specimen Type Sample Site pH Bicarbonate Actual Total CO2 Base Excess O2 Saturation O2 % ABG pCO2 ABG pO2 O2 Delivery Device Sodium 139 Potassium 4.8 Chloride 104 Carbon Dioxide 27.0 Anion Gap 8 BUN 35 H Creatinine 1.04 H Estim Creat Clear Calc 43.35 Est GFR (MDRD) Af Amer 67 Est GFR (MDRD) Non-Af 55 L BUN/Creatinine Ratio 33.7 H Glucose 118 H Lactic Acid Calcium 8.7 Magnesium Ferritin Total Bilirubin 0.40 Direct Bilirubin AST 29 ALT 57 H Alkaline Phosphatase 95 Lactate Dehydrogenase Troponin I C-React Prot Ext Range B-Natriuretic Peptide Total Protein 6.0 L Albumin 2.3 L Globulin 3.7 Albumin/Globulin Ratio 0.6 L Triglycerides Cholesterol LDL Cholesterol VLDL Cholesterol HDL Cholesterol Procalcitonin COVID-19 (ZAKIYA) Microbiology 10/28/20 09:45 Urine, Random Legionella Antigen - Final 10/28/20 09:45 Urine, Random Streptococcus pneumoniae Antigen (M - Final 10/29/20 04:15 Sputum, Expectorated/Coughed Gram Stain - Final 10/28/20 18:33 Mucosa - Nasopharyngeal Respira Clinical Impression(s) from Imaging Studies Chest X-Ray 10/28/20 16:58 IMPRESSION: Interstitial infiltrates or edema. Electronically Signed: Tyler Vu MD at 18:00 EST , Service support , Chest CTA 10/28/20 18:55 IMPRESSION: Pulmonary embolism. Emphysema with interstitial edema or infiltrates. Electronically Signed: Tyler Vu MD at 19:28 EST , Service support , ADDENDUM: 10/28/20 194 IMPRESSION: Pulmonary embolism. Emphysema with interstitial edema or infiltrates. N.B. : The above information has been verbally conveyed by Tlyer Vu MD to Perry Flores MD, on 10/28/2020 19:34:49 (ET). Electronically Signed: Tyler Vu MD at 19:28 EST , Service support , tory Panel (PCR) - Final Current Medications Acetaminophen (Acetaminophen 650 Mg Suppository) 650 mg RECTAL Q4H PRN PRN PRN Reason: Pain Score 1-10/Temp > 100.7 F Acetaminophen (Acetaminophen 325 Mg Tablet) 650 mg PO Q6H PRN PRN PRN Reason: Pain Score 1-10/Temp > 100.7 F Al Hydroxide/Mg Hydroxide (Mag Hydrox/Al Hydrox/Simeth 30 Ml Udc) 30 ml PO Q6H PRN PRN PRN Reason: Gastric Burning Albuterol Sulfate (Albuterol Ih 8.5 Gm (Proair) Inhaler (200 Puffs)) 4 - 8 puff INHALATION Q4H PRN PRN PRN Reason: Dyspnea, wheezing Albuterol/Ipratropium (Ipratropium/Albuterol Sulfate 3 Ml Ampul.Neb) 3 ml INHALATION Q4HWA.RT [facility] Last Admin: 10/29/20 19:37 Dose: 3 ml Documented by: Apixaban (Apixaban 5 Mg Tablet) 10 mg PO BID [facility] Stop: 11/05/20 11:43 Last Admin: 10/29/20 21:12 Dose: 10 mg Documented by: Apixaban (Apixaban 5 Mg Tablet) 5 mg PO BID [facility] Aspirin (Aspirin E.C. 81 Mg Tablet) 81 mg PO DAILY [facility] Last Admin: 10/29/20 09:39 Dose: 81 mg Documented by: Bupropion HCl (Bupropion (Xl) 300 Mg Tablet.Xl) 300 mg PO DAILY [facility] Last Admin: 10/29/20 09:39 Dose: 300 mg Documented by: Dexamethasone Sodium Phosphate (Dexamethasone 4 Mg/Ml Vial) 6 mg IV DAILY [facility] Stop: 11/06/20 10:01 Last Admin: 10/29/20 09:39 Dose: 6 mg Documented by: Famotidine (Famotidine 20 Mg Tablet) 20 mg PO BID [facility] Last Admin: 10/29/20 21:11 Dose: 20 mg Documented by: Guaifenesin (Guaifenesin 10 Ml Udc (200mg/10ml)) 10 ml PO Q4H PRN PRN PRN Reason: COUGH Hydralazine HCl (Hydralazine 20 Mg/Ml Vial) 10 mg IV Q4H PRN PRN PRN Reason: SBP > 160 Remdesivir 100 mg/ Sodium (Chloride) 250 mls @ 125 mls/hr IV Q24H [facility] Stop: 11/01/20 23:59 Last Infusion: 10/30/20 02:43 Dose: Infused Documented by: Sodium Chloride () 250 mls @ 15 mls/hr IV .[id number] PRN PRN Reason: Saline Flush Sodium Chloride () 250 mls @ 15 mls/hr IV .[id number] PRN PRN Reason: Additional IVPB Infusion Magnesium Hydroxide (Magnesium Hydroxide 30 Ml Udc) 30 ml PO DAILY PRN PRN PRN Reason: Constipation Melatonin (Melatonin 3 Mg Tablet) 3 mg PO QHS PRN PRN PRN Reason: INSOMNIA Nitroglycerin (Nitroglycerin (Inpatient Use) 0.4 Mg Tab.Subl) 0.4 mg SUBLINGUAL Q5M PRN PRN Reason: CARDIAC/CHEST PAIN Ondansetron HCl (Ondansetron 4 Mg/2 Ml Vial) 4 mg IV Q8H PRN PRN PRN Reason: NAUSEA/VOMITING Prochlorperazine Edisylate (Prochlorperazine 10 Mg/2 Ml Vial) 5 mg IV Q4H PRN PRN PRN Reason: Breakthrough Nausea/Vomiting Psyllium Hydrophilic Mucilloid (Psyllium 1 Packet) 1 packet PO DAILY PRN PRN PRN Reason: Constipation Senna/Docusate Sodium (Senna/Docusate Sodium 1 Tablet) 2 tablet PO BID PRN PRN PRN Reason: Constipation Sodium Chloride (0.9% Saline Lock 10 Ml Syringe) 10 - 40 ml IV UD PRN PRN Reason: SALINE FLUSH Last Admin: 10/30/20 00:29 Dose: 10 ml Documented by: Throat Lozenges (Benzocaine/Menthol 1 Lozenge) 1 lozenge MUCOUS MEM Q2H PRN PRN PRN Reason: SORE THROAT Medical Necessity - Tobacco Use Smoking Status: Former smoker Tobacco Use: Non-smoker Assessment/Plan All Active Problems Acute and chronic respiratory failure with hypoxia (Acute) Pneumonia due to COVID-19 virus (Acute) Cardiac enzymes elevated (Acute) RECOMMENDATIONS: 1. Continue Decadron with plans to complete a 10-day treatment course. 2. Continue remdesivir. Monitor liver and renal function accordingly. 3. Continue to wean FiO2 to maintain oxygen saturations at or above 90%. 4. Continue scheduled bronchodilator therapy. 5. Continue systemic anticoagulation with Eliquis. IMPRESSIONS: 1. Acute on chronic hypoxemic respiratory failure secondary to COVID-19 pneumonia and bilateral pulmonary emboli The patient does have an apparent history of COPD along with a 2 L/min baseline oxygen requirement, primarily just at nighttime. She presented with worsening shortness of breath and hypoxemia. Although the patient did require BiPAP utilization, she has been weaned to heated high flow oxygen, which will be continued. Plan to wean FiO2 to maintain oxygen saturations at or above 90%. Continue scheduled bronchodilator therapy as ordered. Remdesivir and Decadron will be continued. Liver and renal function will be monitored accordingly. Continue systemic anticoagulation with Eliquis. 2. Anxiety/depression/tobacco dependency in remission/mild cognitive impairment Complicates care, management, recovery and prognosis. Continue home medications as indicated. This note was generated with Dragon dictation software. It may contain incorrect words, spelling, and punctuation that were not noted in checking the note before signing. Inpatient E&M: 44461 Subs Hosp L3
[2020-10-30 06:59] LABS: Hematocrit 38.8 % (37-47); Hemoglobin 12.5 g/dL (12.0-15.0); Mean Corp Hgb Conc 32.2 g/dL (32-36); Mean Corpuscular Volume 96.3 fL (81-99); Mean Platelet Vol. 9.1 fl (6.2-12.0); Platelet Count 511 K/mm3 (150-450); RBC Distribution Width CV 13.4 % (11.6-14.6); RBC Distribution Width SD 47.9 fl (35.1-43.9); Red Blood Count 4.03 M/mm3 (4.2-5.4); White Blood Count 18.8 K/mm3 (4.4-11.0)
[2020-10-30] MEDS: Ipratropium/Albuterol Sulfate 3 ML AMPUL.NEB INHALATION ×4 (07:22→19:52)
[2020-10-30 07:33] LABS: ALB/GLOB Ratio 0.6 RATIO (0.9-2.4); AST(SGOT) 29 U/L (15-37); Alanine Aminotransfer ALT/SGPT 57 U/L (13-56); Albumin, Serum 2.3 g/dL (3.2-5.0); Alkaline Phosphatase 95 U/L (45-117); Anion Gap 8 (5-15); BUN 35 mg/dL (7-18); BUN/Creat Ratio 33.7 RATIO (10-20); Calcium,Total 8.7 mg/dL (8.5-10.1); Chloride 104 mmol/L (98-107); Creatinine, Serum 1.04 mg/dL (0.55-1.02); EST Glomerular Filtration Rate 55 mL/min (>60); Est Glom Filt Rate - Afr Amer 67 mL/min (>60); Estimated Creatinine Clearance 43.35 ml/min; Globulin 3.7 g/dL (2.2-4.2); Glucose 118 mg/dL (74-106); Potassium 4.8 mmol/L (3.5-5.1); Sodium Level 139 mmol/L (136-145)
[2020-10-30] MEDS: dexAMETHasone 4 MG/ML Vial 6 MG IV (11:09)
[2020-10-30] MEDS: Aspirin E.C. 81 MG Tablet PO (11:09)
[2020-10-30] MEDS: buPROPion (XL) 300 MG TABLET.XL PO (11:09)
[2020-10-30] MEDS: APIXABAN 5 MG TABLET 10 MG PO ×2 (11:09→22:50)
[2020-10-30] MEDS: Famotidine 20 MG Tablet PO ×2 (11:09→22:50)
--- NOTE | 2020-10-30 12:50 | CASEMGMT ---
Social Work Pt is having some confusion at this time. Phone call to pt daughter Elvira Villafana for initial transition planning/care coordination assessment. SW introduced self and role at [facility]. Care providers, pharmacy, and demographics verified/updated at this time. PCP: Dr. Rosario Preferred Pharmacy: [facility] Insurance: [employer] Prescription Benefit: Yes Living Will/HPOA: Elvira states she is the HCPOA and she believes pt has a living will LNOK: Daughter Elvira is HCPOA. Pt lives with grandson and great grandson. Pt son Maury is also supportive. Living Arrangements: Pt lives with her grandson who does work. 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 They live in a two story home with grandson living upstairs and pt living on the first floor. Transportation: Pt drives DME: Pt uses 2L home oxygen at night. Dgt did not know company this is from. NATALIE placed phone call to [employer], [employer] and [employer] and none of these companies are current with pt. No other DME needed or used. HHC/SNF: None prior Elvira states that the family is currently talking about pt going home with son and daughter in law Maury and Gala at discharge. They would be able to provide 24 hour supervision of pt. RNCM updated and will follow for home oxygen needs and any further discharge planning/needs. MILAD Acuña
--- NOTE | 2020-10-30 14:33 | PN.ID_ITS ---
Patient Problems: Active and Suspected Problems Acute and chronic respiratory failure with hypoxia (Acute) Pneumonia due to COVID-19 virus (Acute) Cardiac enzymes elevated (Acute) Chronic kidney disease (CKD), stage III (moderate) (Suspected) Cognitive impairment (Suspected) Subjective: Feeling better, breathing better, no n/v/d. - Physical Exam Vitals/I&O's: Vital Signs Temp Pulse Resp BP Pulse Ox 97.8 F 90 18 125/59 H 92 10/30/20 10:30 10/30/20 12:30 10/30/20 11:01 10/30/20 10:30 10/30/20 11:01 Oxygen Flow Rate (L/min) 50 Oxygen Delivery Method Airvo Weight: 72.34 kg Body Mass Index (BMI) 26.6 Intake and Output for Last 24 Hours 10/28/20 10/29/20 10/30/20 23:59 23:59 23:59 Intake Total 150 / 150 1030.03 / 1030.03 550 / 550 Output Total 2150 / 2150 500 / 500 Balance 150 / 150 -1119.97 / -1119.97 50 / 50 General: Alert, Cooperative, No apparent distress Lungs: Clear to auscultation, Diminished Cardiovascular: Regular rate, Regular Rhythm Abdomen: Soft, Non Tender, Non-Distended Skin: No rashes Microbiology Past 72 Hours 10/29/20 04:15 Sputum, Expectorated/Coughed Gram Stain - Final 10/29/20 04:15 Sputum, Expectorated/Coughed Respiratory Culture - Preliminary Appears to be normal respiratory gary. Further studies to follow. 10/28/20 09:45 Urine, Random Legionella Antigen - Final 10/28/20 09:45 Urine, Random Streptococcus pneumoniae Antigen (M - Final 10/28/20 18:33 Mucosa - Nasopharyngeal Respiratory Panel (PCR) - Final Laboratory Results 10/30/20 05:40: WBC 18.8 H, RBC 4.03 L, Hgb 12.5, Hct 38.8, MCV 96.3, MCH 31.0, MCHC 32.2, RDW Std Deviation 47.9 H, RDW Coeff of Jhoan 13.4, Plt Count 511 H, MPV 9.1 10/30/20 05:40: Sodium 139, Potassium 4.8, Chloride 104, Carbon Dioxide 27.0, Anion Gap 8, BUN 35 H, Creatinine 1.04 H, Estim Creat Clear Calc 43.35, Est GFR (MDRD) Af Amer 67, Est GFR (MDRD) Non-Af 55 L, BUN/Creatinine Ratio 33.7 H, Glucose 118 H, Calcium 8.7, Total Bilirubin 0.40, AST 29, ALT 57 H, Alkaline Phosphatase 95, Total Protein 6.0 L, Albumin 2.3 L, Globulin 3.7, Albumin/Globulin Ratio 0.6 L Current Medications Acetaminophen (Acetaminophen 650 Mg Suppository) 650 mg RECTAL Q4H PRN PRN PRN Reason: Pain Score 1-10/Temp > 100.7 F Acetaminophen (Acetaminophen 325 Mg Tablet) 650 mg PO Q6H PRN PRN PRN Reason: Pain Score 1-10/Temp > 100.7 F Al Hydroxide/Mg Hydroxide (Mag Hydrox/Al Hydrox/Simeth 30 Ml Udc) 30 ml PO Q6H PRN PRN PRN Reason: Gastric Burning Albuterol Sulfate (Albuterol Ih 8.5 Gm (Proair) Inhaler (200 Puffs)) 4 - 8 puff INHALATION Q4H PRN PRN PRN Reason: Dyspnea, wheezing Albuterol/Ipratropium (Ipratropium/Albuterol Sulfate 3 Ml Ampul.Neb) 3 ml INHALATION Q4HWA.RT [facility] Last Admin: 10/30/20 11:01 Dose: 3 ml Documented by: Apixaban (Apixaban 5 Mg Tablet) 10 mg PO BID [facility] Stop: 11/05/20 11:43 Last Admin: 10/30/20 11:09 Dose: 10 mg Documented by: Apixaban (Apixaban 5 Mg Tablet) 5 mg PO BID [facility] Aspirin (Aspirin E.C. 81 Mg Tablet) 81 mg PO DAILY [facility] Last Admin: 10/30/20 11:09 Dose: 81 mg Documented by: Bupropion HCl (Bupropion (Xl) 300 Mg Tablet.Xl) 300 mg PO DAILY [facility] Last Admin: 10/30/20 11:09 Dose: 300 mg Documented by: Dexamethasone Sodium Phosphate (Dexamethasone 4 Mg/Ml Vial) 6 mg IV DAILY [facility] Stop: 11/06/20 10:01 Last Admin: 10/30/20 11:09 Dose: 6 mg Documented by: Famotidine (Famotidine 20 Mg Tablet) 20 mg PO BID [facility] Last Admin: 10/30/20 11:09 Dose: 20 mg Documented by: Guaifenesin (Guaifenesin 10 Ml Udc (200mg/10ml)) 10 ml PO Q4H PRN PRN PRN Reason: COUGH Hydralazine HCl (Hydralazine 20 Mg/Ml Vial) 10 mg IV Q4H PRN PRN PRN Reason: SBP > 160 Remdesivir 100 mg/ Sodium (Chloride) 250 mls @ 125 mls/hr IV Q24H [facility] Stop: 11/01/20 23:59 Last Infusion: 10/30/20 02:43 Dose: Infused Documented by: Sodium Chloride () 250 mls @ 15 mls/hr IV .[id number] PRN PRN Reason: Saline Flush Sodium Chloride () 250 mls @ 15 mls/hr IV .[id number] PRN PRN Reason: Additional IVPB Infusion Magnesium Hydroxide (Magnesium Hydroxide 30 Ml Udc) 30 ml PO DAILY PRN PRN PRN Reason: Constipation Melatonin (Melatonin 3 Mg Tablet) 3 mg PO QHS PRN PRN PRN Reason: INSOMNIA Nitroglycerin (Nitroglycerin (Inpatient Use) 0.4 Mg Tab.Subl) 0.4 mg SUBLINGUAL Q5M PRN PRN Reason: CARDIAC/CHEST PAIN Ondansetron HCl (Ondansetron 4 Mg/2 Ml Vial) 4 mg IV Q8H PRN PRN PRN Reason: NAUSEA/VOMITING Prochlorperazine Edisylate (Prochlorperazine 10 Mg/2 Ml Vial) 5 mg IV Q4H PRN PRN PRN Reason: Breakthrough Nausea/Vomiting Psyllium Hydrophilic Mucilloid (Psyllium 1 Packet) 1 packet PO DAILY PRN PRN PRN Reason: Constipation Senna/Docusate Sodium (Senna/Docusate Sodium 1 Tablet) 2 tablet PO BID PRN PRN PRN Reason: Constipation Sodium Chloride (0.9% Saline Lock 10 Ml Syringe) 10 - 40 ml IV UD PRN PRN Reason: SALINE FLUSH Last Admin: 10/30/20 11:10 Dose: 10 ml Documented by: Throat Lozenges (Benzocaine/Menthol 1 Lozenge) 1 lozenge MUCOUS MEM Q2H PRN PRN PRN Reason: SORE THROAT Medical Necessity - Tobacco Use Smoking Status: Former smoker Tobacco Use: Non-smoker Route of nutrition/ use of supplements: [] Nutritional Intake: [] IV Site: [] Vera Catheter: [] - Assessment/Plan Antibiotics: [] Assessment/Plan: [] Active and Suspected Problems Acute and chronic respiratory failure with hypoxia (Acute) Pneumonia due to COVID-19 virus (Acute) Cardiac enzymes elevated (Acute) Chronic kidney disease (CKD), stage III (moderate) (Suspected) Cognitive impairment (Suspected) covid with hypoxia, PE with chronic lung disease and CKD - on dex, eliquis, and remdesivir. On airvo. Feeling better. Plan on 20 days of quarantine from [facility] t of symptoms, 10 days total of dex, anticoagulation for PE. Will follow
--- NOTE | 2020-10-30 18:06 | PCM.PROGNOTE ---
Patient Problems: Active and Suspected Problems Acute and chronic respiratory failure with hypoxia (Acute) Pneumonia due to COVID-19 virus (Acute) Cardiac enzymes elevated (Acute) Chronic kidney disease (CKD), stage III (moderate) (Suspected) Cognitive impairment (Suspected) Subjective: Patient was seen and examined today, she is currently on Airvo appears comfortable. - Physical Exam Vitals/I&O's: Vital Signs Temp Pulse Resp BP Pulse Ox 97.8 F 90 18 126/66 H 92 10/30/20 15:53 10/30/20 15:53 10/30/20 15:53 10/30/20 15:53 10/30/20 15:53 Oxygen Flow Rate (L/min) 50 Oxygen Delivery Method Airvo Weight: 72.34 kg Body Mass Index (BMI) 26.6 Intake and Output for Last 24 Hours 10/28/20 10/29/20 10/30/20 23:59 23:59 23:59 Intake Total 150 / 150 1030.03 / 1030.03 550 / 550 Output Total 2150 / 2150 500 / 500 Balance 150 / 150 -1119.97 / -1119.97 50 / 50 General: Alert, Oriented x3, Cooperative, No apparent distress, Well developed, Well nourished HEENT: Atraumatic, PERRLA, EOMI, Normocephalic Oral: Moist Mucosa Neck: Supple, No JVD, Trachea Midline, Thyroid Normal Size and Texture Lungs: Clear to auscultation, Normal air movement, No rhonchi, No wheeze, No rales Cardiovascular: Regular rate, Regular Rhythm, Normal S1, Normal S2, No murmurs, PMI Normal, No rub noted, No Gallop Abdomen: Bowel Sounds Present, Soft, Non Tender, Non-Distended Extremities: No clubbing, No cyanosis, No edema, Capillary Refill Less than 3 Seconds Skin: No rashes, No breakdown Musculoskeletal: No Tenderness to Palpation of Joints or Extremities Neurological: Cranial nerves II-XII grossly intact, Neuro grossly intact, Sensory exam intact to light touch and pain, Coordination normal Psych/Mental Status: Normal Affect, Appropriate, Alert and oriented to time, place, person, mood and affect Microbiology Past 72 Hours 10/29/20 04:15 Sputum, Expectorated/Coughed Gram Stain - Final 10/29/20 04:15 Sputum, Expectorated/Coughed Respiratory Culture - Preliminary Appears to be normal respiratory gary. Further studies to follow. 10/28/20 09:45 Urine, Random Legionella Antigen - Final 10/28/20 09:45 Urine, Random Streptococcus pneumoniae Antigen (M - Final 10/28/20 18:33 Mucosa - Nasopharyngeal Respiratory Panel (PCR) - Final Laboratory Results 10/30/20 05:40: WBC 18.8 H, RBC 4.03 L, Hgb 12.5, Hct 38.8, MCV 96.3, MCH 31.0, MCHC 32.2, RDW Std Deviation 47.9 H, RDW Coeff of Jhoan 13.4, Plt Count 511 H, MPV 9.1 10/30/20 05:40: Sodium 139, Potassium 4.8, Chloride 104, Carbon Dioxide 27.0, Anion Gap 8, BUN 35 H, Creatinine 1.04 H, Estim Creat Clear Calc 43.35, Est GFR (MDRD) Af Amer 67, Est GFR (MDRD) Non-Af 55 L, BUN/Creatinine Ratio 33.7 H, Glucose 118 H, Calcium 8.7, Total Bilirubin 0.40, AST 29, ALT 57 H, Alkaline Phosphatase 95, Total Protein 6.0 L, Albumin 2.3 L, Globulin 3.7, Albumin/Globulin Ratio 0.6 L Current Medications Acetaminophen (Acetaminophen 650 Mg Suppository) 650 mg RECTAL Q4H PRN PRN PRN Reason: Pain Score 1-10/Temp > 100.7 F Acetaminophen (Acetaminophen 325 Mg Tablet) 650 mg PO Q6H PRN PRN PRN Reason: Pain Score 1-10/Temp > 100.7 F Al Hydroxide/Mg Hydroxide (Mag Hydrox/Al Hydrox/Simeth 30 Ml Udc) 30 ml PO Q6H PRN PRN PRN Reason: Gastric Burning Albuterol Sulfate (Albuterol Ih 8.5 Gm (Proair) Inhaler (200 Puffs)) 4 - 8 puff INHALATION Q4H PRN PRN PRN Reason: Dyspnea, wheezing Albuterol/Ipratropium (Ipratropium/Albuterol Sulfate 3 Ml Ampul.Neb) 3 ml INHALATION Q4HWA.RT [facility] Last Admin: 10/30/20 15:15 Dose: 3 ml Documented by: Apixaban (Apixaban 5 Mg Tablet) 10 mg PO BID [facility] Stop: 11/05/20 11:43 Last Admin: 10/30/20 11:09 Dose: 10 mg Documented by: Apixaban (Apixaban 5 Mg Tablet) 5 mg PO BID [facility] Aspirin (Aspirin E.C. 81 Mg Tablet) 81 mg PO DAILY [facility] Last Admin: 10/30/20 11:09 Dose: 81 mg Documented by: Bupropion HCl (Bupropion (Xl) 300 Mg Tablet.Xl) 300 mg PO DAILY [facility] Last Admin: 10/30/20 11:09 Dose: 300 mg Documented by: Dexamethasone Sodium Phosphate (Dexamethasone 4 Mg/Ml Vial) 6 mg IV DAILY [facility] Stop: 11/06/20 10:01 Last Admin: 10/30/20 11:09 Dose: 6 mg Documented by: Famotidine (Famotidine 20 Mg Tablet) 20 mg PO BID [facility] Last Admin: 10/30/20 11:09 Dose: 20 mg Documented by: Guaifenesin (Guaifenesin 10 Ml Udc (200mg/10ml)) 10 ml PO Q4H PRN PRN PRN Reason: COUGH Hydralazine HCl (Hydralazine 20 Mg/Ml Vial) 10 mg IV Q4H PRN PRN PRN Reason: SBP > 160 Remdesivir 100 mg/ Sodium (Chloride) 250 mls @ 125 mls/hr IV Q24H [facility] Stop: 11/01/20 23:59 Last Infusion: 10/30/20 02:43 Dose: Infused Documented by: Sodium Chloride () 250 mls @ 15 mls/hr IV .[id number] PRN PRN Reason: Saline Flush Sodium Chloride () 250 mls @ 15 mls/hr IV .[id number] PRN PRN Reason: Additional IVPB Infusion Magnesium Hydroxide (Magnesium Hydroxide 30 Ml Udc) 30 ml PO DAILY PRN PRN PRN Reason: Constipation Melatonin (Melatonin 3 Mg Tablet) 3 mg PO QHS PRN PRN PRN Reason: INSOMNIA Nitroglycerin (Nitroglycerin (Inpatient Use) 0.4 Mg Tab.Subl) 0.4 mg SUBLINGUAL Q5M PRN PRN Reason: CARDIAC/CHEST PAIN Ondansetron HCl (Ondansetron 4 Mg/2 Ml Vial) 4 mg IV Q8H PRN PRN PRN Reason: NAUSEA/VOMITING Prochlorperazine Edisylate (Prochlorperazine 10 Mg/2 Ml Vial) 5 mg IV Q4H PRN PRN PRN Reason: Breakthrough Nausea/Vomiting Psyllium Hydrophilic Mucilloid (Psyllium 1 Packet) 1 packet PO DAILY PRN PRN PRN Reason: Constipation Senna/Docusate Sodium (Senna/Docusate Sodium 1 Tablet) 2 tablet PO BID PRN PRN PRN Reason: Constipation Sodium Chloride (0.9% Saline Lock 10 Ml Syringe) 10 - 40 ml IV UD PRN PRN Reason: SALINE FLUSH Last Admin: 10/30/20 11:10 Dose: 10 ml Documented by: Throat Lozenges (Benzocaine/Menthol 1 Lozenge) 1 lozenge MUCOUS MEM Q2H PRN PRN PRN Reason: SORE THROAT Medical Necessity - Tobacco Use Smoking Status: Former smoker Tobacco Use: Non-smoker Assessment/Plan All Active Problems Acute and chronic respiratory failure with hypoxia (Acute) Pneumonia due to COVID-19 virus (Acute) Cardiac enzymes elevated (Acute) #1 COVID-19 pneumonia-patient is being seen by infectious diseases, she remains on remdesivir and dexamethasone #2 bilateral pulmonary embolism-patient is on Eliquis at this time #3 acute on chronic hypoxic respiratory failure secondary to COVID-19 pneumonia and pulmonary embolism-pulmonary medicine is participating in her care #4 chronic kidney disease stage III #5 leukocytosis-probably secondary to dexamethasone administration #6 COPD Inpatient E&M: 91238 Subs Hosp L2
[2020-10-30] MEDS: MELATONIN 3 MG TABLET PO (22:50)
[2020-10-30] MEDS: busPIRone 15 MG TABLET PO (23:18)
[2020-10-31] VITALS (20 sets, daily range): BP systolic 99–133; BP diastolic 56–80; PULSE 66–123; RESP 12–28; TEMP 36.6–37.2; O2SAT 45–95
[2020-10-31] MEDS: Ipratropium/Albuterol Sulfate 3 ML AMPUL.NEB INHALATION ×3 (06:47→15:37)
[2020-10-31 07:45] LABS: Hematocrit 35.8 % (37-47); Hemoglobin 11.7 g/dL (12.0-15.0); Mean Corp Hgb Conc 32.7 g/dL (32-36); Mean Platelet Vol. 9.1 fl (6.2-12.0); Platelet Count 468 K/mm3 (150-450); RBC Distribution Width CV 13.5 % (11.6-14.6); RBC Distribution Width SD 46.8 fl (35.1-43.9); Red Blood Count 3.77 M/mm3 (4.2-5.4); White Blood Count 16.9 K/mm3 (4.4-11.0)
--- NOTE | 2020-10-31 08:46 | NURSING ---
step down monitor [id number]
[2020-10-31] MEDS: Furosemide 40 MG/4 ML Vial IV (08:47)
[2020-10-31] MEDS: dexAMETHasone 4 MG/ML Vial 6 MG IV (08:47)
[2020-10-31] MEDS: Famotidine 20 MG Tablet PO (08:48)
[2020-10-31] MEDS: busPIRone 15 MG TABLET PO ×2 (08:48→14:09)
[2020-10-31] MEDS: buPROPion (XL) 300 MG TABLET.XL PO (08:48)
[2020-10-31] MEDS: Aspirin E.C. 81 MG Tablet PO (08:49)
[2020-10-31] MEDS: 0.9% Saline Lock 10 ML Syringe IV ×2 (08:49→20:10)
[2020-10-31] MEDS: APIXABAN 5 MG TABLET 10 MG PO (08:49)
--- NOTE | 2020-10-31 09:35 | NURSING ---
Spo2 82-84% on Airvow. Pt is laying in bed and has Airvo on correctly. CPS-Svetlana called to see if we can increase Airvo settings. Per Svetlana, pt on the max amt of Airvo. Hope came down to put pt on Bipap to see if pt can tolerate bipap. Hope in room at this time. Updated primary nurse Cynthia BARRERA.
[2020-10-31 09:57] LABS: ALB/GLOB Ratio 0.7 RATIO (0.9-2.4); AST(SGOT) 20 U/L (15-37); Alanine Aminotransfer ALT/SGPT 45 U/L (13-56); Albumin, Serum 2.2 g/dL (3.2-5.0); Alkaline Phosphatase 87 U/L (45-117); Anion Gap 7 (5-15); BUN 28 mg/dL (7-18); BUN/Creat Ratio 38.4 RATIO (10-20); Calcium,Total 8.4 mg/dL (8.5-10.1); Chloride 106 mmol/L (98-107); Creatinine, Serum 0.73 mg/dL (0.55-1.02); EST Glomerular Filtration Rate 83 mL/min (>60); Est Glom Filt Rate - Afr Amer 100 mL/min (>60); Estimated Creatinine Clearance 45.09 ml/min; Globulin 3.3 g/dL (2.2-4.2); Glucose 91 mg/dL (74-106); Potassium 4.5 mmol/L (3.5-5.1); Protein, Total 5.5 g/dL (6.4-8.2); Sodium Level 140 mmol/L (136-145)
--- NOTE | 2020-10-31 10:09 | NURSING ---
Pt restless on Bipap machine. this nurse called Dr. Helton, order of Vistaril obtained.
--- NOTE | 2020-10-31 10:42 | CM.UR ---
Was alerted on cm report that patient needs eliquis card. Due to on medicare only qualifies for 30 day free trial. Placed card on chart. Insurance card not scanned so unable to check tier level. will need to check her pharmacy at discharge for pricing. Patient currently remains on Airvo<-->bipap. Do not anticipate discharge prior to Monday. Lonnie Bucio RN
[2020-10-31] MEDS: hydrOXYzine PAM 25 MG Capsule 50 MG PO (10:44)
--- NOTE | 2020-10-31 11:46 | NURSING ---
voicemail message left at number in demographics sheet for Elvira Villafana, to call back to ms2 for pt status update
--- NOTE | 2020-10-31 12:10 | NURSING ---
nurse to room- pt removed her BIPAP. visibly SOB, spo2 74%. BIPAP reapplied and reinforced importance of use. after few minutes of BIPAP being back on, spo2 up to 90%. pt states i feel scared inquired if this has happened before, pt states yes, i get this way at home too. inquired as to what pt does at home when she has this feeling- pt states i usually just go lay down
[2020-10-31] MEDS: QUEtiapine 25 MG Tablet PO (14:09)
--- NOTE | 2020-10-31 14:19 | NURSING ---
Pt had her CPAP fully off and Monitor off and was sitting on edge of bed with bed exit alarming. This nurse put CPAP and monitor back on and assisted to chair since pt is restless. This nurse in room with pt making sure she keeps mask on.
--- NOTE | 2020-10-31 15:07 | NURSING ---
nurse to room to relieve another RN who is sitting 1:1. pt remains confused. keeps attempting to pull off bipap despite multiple attempts to reinforce pt use- pt pulling at mask and eventually removes it- states he is leaving to go home and get her kids- raises her voice to said nurse while saying this. pt rips off her tele monitoring stickers, hear wire leads, pulse ox. spo2 @ 60% within less than 2 minutes of her removing bipap. able to get pt redirected and able to assist pt back to bed. lips/fingers cyanotic, tachynpea- pt allows nurse to reapply AIRVO per setting prior to going on BIPAP. also allows nurse to place tele monitoring leads back on as well.
--- NOTE | 2020-10-31 15:18 | NURSING ---
pt continues to be very restless, pulls airvo off as well, allows nurse to place back in her nose, but then continues to pull at other wires/tubes etc that are nearby. pt argumentative with nurse, gets up and walks towards FOB and says she is going to leave and go home. able to get a hold of her daughter Epifanio attempts to reason with pt- pt continues to be unreasonable in thoughts/actions.
--- NOTE | 2020-10-31 15:47 | NURSING ---
nurse continues to be 1:1 at bedside. pt continues to be agitated, and unreasonable, argumentative.
[2020-10-31] MEDS: Haloperidol Lactate 5 MG/ML Vial 1 MG IM ×3 (16:04→22:35)
--- NOTE | 2020-10-31 16:21 | NURSING ---
phone call to pt SHERRY Elvira to update on pt status; pt continues to attempt to remove AIRVO, argumentative with staff, spo2 85% on max AIRVO settings, prn medications given to assist with agitation to no avail. Inquired as to family wishes of pt comfort- Elvira states she would like to speak to her brother and will call said nurse back at nurses station.
--- NOTE | 2020-10-31 16:25 | NURSING ---
Elvira calls back in- states just do what you do and if she keeps taking it off, just leave it off. Nurse reflective and clarification of daughter comments so if she takes her oxygen off, you want us to leave it off and make her comfortable to which Elvira replies yesMissy tearful, support provided.
--- NOTE | 2020-10-31 16:51 | PN_ITS ---
Patient Problems: Active and Suspected Problems Acute and chronic respiratory failure with hypoxia (Acute) Pneumonia due to COVID-19 virus (Acute) Cardiac enzymes elevated (Acute) Chronic kidney disease (CKD), stage III (moderate) (Suspected) Cognitive impairment (Suspected) Subjective: Patient was seen and examined today, she remains confused and at times is not directable, she pulls her CPAP off despite verbal cues not to remove it. Patient's family was contacted today and they stated that they were concerned for the patient's comfort and that if she pulled the CPAP off they were okay with just using Airvo for the patient. Objective: General: Alert, confused, agitated at times, No apparent distress, Well developed, Well nourished HEENT: Atraumatic, PERRLA, EOMI, Normocephalic Oral: Moist Mucosa Neck: Supple, No JVD, Trachea Midline, Thyroid Normal Size and Texture Lungs: Clear to auscultation, Normal air movement, No rhonchi, No wheeze, No rales Cardiovascular: Regular rate, Regular Rhythm, Normal S1, Normal S2, No murmurs, PMI Normal, No rub noted, No Gallop Abdomen: Bowel Sounds Present, Soft, Non Tender, Non-Distended Extremities: No clubbing, No cyanosis, No edema, Capillary Refill Less than 3 Seconds Skin: No rashes, No breakdown Musculoskeletal: No Tenderness to Palpation of Joints or Extremities Neurological: Cranial nerves II-XII grossly intact, Neuro grossly intact, Sensory exam intact to light touch and pain, Coordination normal Psych/Mental Status: Patient appears confused, she is not directable at times, she appears agitated at times - Physical Exam Vitals/I&O's: Vital Signs Temp Pulse Resp BP Pulse Ox 98.2 F 116 H 27 H 129/65 H 84 10/31/20 15:15 10/31/20 15:39 10/31/20 15:39 10/31/20 15:15 10/31/20 15:39 Oxygen Flow Rate (L/min) 50 Oxygen Delivery Method Airvo Weight: 71.1 kg Body Mass Index (BMI) 26.6 Intake and Output for Last 24 Hours 10/29/20 10/30/20 10/31/20 23:59 23:59 23:59 Intake Total 1030.03 / 1030.03 600 / 600 250 / 250 Output Total 2150 / 2150 825 / 825 1750 / 1750 Balance -1119.97 / -1119.97 -225 / -225 -1500 / -1500 Microbiology Past 72 Hours 10/29/20 04:15 Sputum, Expectorated/Coughed Gram Stain - Final 10/29/20 04:15 Sputum, Expectorated/Coughed Respiratory Culture - Final 10/28/20 17:40 Blood Culture (Wb) #2 - Anticubital Right Blood Culture - Preliminary No growth in 48 hours. 10/28/20 17:41 Blood Culture (Wb) - Anticubital Left Blood Culture - Preliminary No growth in 48 hours. 10/28/20 09:45 Urine, Random Legionella Antigen - Final 10/28/20 09:45 Urine, Random Streptococcus pneumoniae Antigen (M - Final 10/28/20 18:33 Mucosa - Nasopharyngeal Respiratory Panel (PCR) - Final Laboratory Results 10/31/20 06:27: WBC 16.9 H, RBC 3.77 L, Hgb 11.7 L, Hct 35.8 L, MCV 95.0, MCH 31.0, MCHC 32.7, RDW Std Deviation 46.8 H, RDW Coeff of Jhoan 13.5, Plt Count 468 H, MPV 9.1 10/31/20 06:27: Sodium 140, Potassium 4.5, Chloride 106, Carbon Dioxide 27.0, Anion Gap 7, BUN 28 H, Creatinine 0.73, Estim Creat Clear Calc 45.09, Est GFR (MDRD) Af Amer 100, Est GFR (MDRD) Non-Af 83, BUN/Creatinine Ratio 38.4 H, Glucose 91, Calcium 8.4 L, Total Bilirubin 0.40, AST 20, ALT 45, Alkaline Phosphatase 87, Total Protein 5.5 L, Albumin 2.2 L, Globulin 3.3, Albumin/Globulin Ratio 0.7 L Current Medications Acetaminophen (Acetaminophen 650 Mg Suppository) 650 mg RECTAL Q4H PRN PRN PRN Reason: Pain Score 1-10/Temp > 100.7 F Acetaminophen (Acetaminophen 325 Mg Tablet) 650 mg PO Q6H PRN PRN PRN Reason: Pain Score 1-10/Temp > 100.7 F Al Hydroxide/Mg Hydroxide (Mag Hydrox/Al Hydrox/Simeth 30 Ml Udc) 30 ml PO Q6H PRN PRN PRN Reason: Gastric Burning Albuterol Sulfate (Albuterol Ih 8.5 Gm (Proair) Inhaler (200 Puffs)) 4 - 8 puff INHALATION Q4H PRN PRN PRN Reason: Dyspnea, wheezing Albuterol/Ipratropium (Ipratropium/Albuterol Sulfate 3 Ml Ampul.Neb) 3 ml INHALATION Q4HWA.RT [facility] Last Admin: 10/31/20 15:37 Dose: 3 ml Documented by: Apixaban (Apixaban 5 Mg Tablet) 10 mg PO BID [facility] Stop: 11/05/20 11:43 Last Admin: 10/31/20 08:49 Dose: 10 mg Documented by: Apixaban (Apixaban 5 Mg Tablet) 5 mg PO BID [facility] Aspirin (Aspirin E.C. 81 Mg Tablet) 81 mg PO DAILY [facility] Last Admin: 10/31/20 08:49 Dose: 81 mg Documented by: Bupropion HCl (Bupropion (Xl) 300 Mg Tablet.Xl) 300 mg PO DAILY [facility] Last Admin: 10/31/20 08:48 Dose: 300 mg Documented by: Buspirone HCl (Buspirone 15 Mg Tablet) 15 mg PO TID [facility] Last Admin: 10/31/20 14:09 Dose: 15 mg Documented by: Dexamethasone Sodium Phosphate (Dexamethasone 4 Mg/Ml Vial) 6 mg IV DAILY [facility] Stop: 11/06/20 10:01 Last Admin: 10/31/20 08:47 Dose: 6 mg Documented by: Famotidine (Famotidine 20 Mg Tablet) 20 mg PO BID [facility] Last Admin: 10/31/20 08:48 Dose: 20 mg Documented by: Guaifenesin (Guaifenesin 10 Ml Udc (200mg/10ml)) 10 ml PO Q4H PRN PRN PRN Reason: COUGH Haloperidol Lactate (Haloperidol Lactate 5 Mg/Ml Vial) 1 mg IM Q6H PRN PRN PRN Reason: AGITATION Last Admin: 10/31/20 16:04 Dose: 1 mg Documented by: Hydralazine HCl (Hydralazine 20 Mg/Ml Vial) 10 mg IV Q4H PRN PRN PRN Reason: SBP > 160 Remdesivir 100 mg/ Sodium (Chloride) 250 mls @ 125 mls/hr IV Q24H [facility] Stop: 11/01/20 23:59 Last Infusion: 10/31/20 01:00 Dose: Infused Documented by: Sodium Chloride () 250 mls @ 15 mls/hr IV .[id number] PRN PRN Reason: Saline Flush Sodium Chloride () 250 mls @ 15 mls/hr IV .[id number] PRN PRN Reason: Additional IVPB Infusion Magnesium Hydroxide (Magnesium Hydroxide 30 Ml Udc) 30 ml PO DAILY PRN PRN PRN Reason: Constipation Melatonin (Melatonin 3 Mg Tablet) 3 mg PO QHS PRN PRN PRN Reason: INSOMNIA Last Admin: 10/30/20 22:50 Dose: 3 mg Documented by: Nitroglycerin (Nitroglycerin (Inpatient Use) 0.4 Mg Tab.Subl) 0.4 mg SUBLINGUAL Q5M PRN PRN Reason: CARDIAC/CHEST PAIN Ondansetron HCl (Ondansetron 4 Mg/2 Ml Vial) 4 mg IV Q8H PRN PRN PRN Reason: NAUSEA/VOMITING Prochlorperazine Edisylate (Prochlorperazine 10 Mg/2 Ml Vial) 5 mg IV Q4H PRN PRN PRN Reason: Breakthrough Nausea/Vomiting Psyllium Hydrophilic Mucilloid (Psyllium 1 Packet) 1 packet PO DAILY PRN PRN PRN Reason: Constipation Quetiapine Fumarate (Quetiapine 25 Mg Tablet) 25 mg PO DAILY [facility] Last Admin: 10/31/20 14:09 Dose: 25 mg Documented by: Senna/Docusate Sodium (Senna/Docusate Sodium 1 Tablet) 2 tablet PO BID PRN PRN PRN Reason: Constipation Sodium Chloride (0.9% Saline Lock 10 Ml Syringe) 10 - 40 ml IV UD PRN PRN Reason: SALINE FLUSH Last Admin: 10/31/20 08:49 Dose: 20 ml Documented by: Throat Lozenges (Benzocaine/Menthol 1 Lozenge) 1 lozenge MUCOUS MEM Q2H PRN PRN PRN Reason: SORE THROAT Medical Necessity - Tobacco Use Smoking Status: Former smoker Tobacco Use: Non-smoker Assessment/Plan All Active Problems Acute and chronic respiratory failure with hypoxia (Acute) Pneumonia due to COVID-19 virus (Acute) Cardiac enzymes elevated (Acute) #1 COVID-19 pneumonia-patient is being seen by infectious diseases, she remains on remdesivir and dexamethasone #2 bilateral pulmonary embolism-patient is on Eliquis at this time #3 acute on chronic hypoxic respiratory failure secondary to COVID-19 pneumonia and pulmonary embolism-pulmonary medicine is participating in her care #4 chronic kidney disease stage III #5 leukocytosis-probably secondary to dexamethasone administration #6 COPD #7 cognitive impairment-probable dementia, complicates patient's medical care an d prognosis Patient is a DNR CC arrest with no intubation, per family wishes, if patient is noncompliant with her CPAP, she will remain on high flow oxygen. Inpatient E&M: [id number] Subs Hosp L2
--- NOTE | 2020-10-31 17:15 | NURSING ---
pt continues to be argumentative with staff, unable to be distracted, trying to take AIRVO off- daughter just arrived to see pt.
[2020-10-31] MEDS: Morphine 4 MG/ML Syringe IV (20:09)
[2020-10-31] MEDS: Ondansetron 4 MG/2 ML Vial IV (20:10)
--- NOTE | 2020-10-31 20:31 | NURSING ---
Family requests [facility] in [place] to be used.
[2020-10-31] MEDS: Morphine 4 MG/ML Syringe 2 MG IV (23:15)
[2020-10-31] MEDS: LORazepam 2 MG/ML Syringe 1 MG IV (23:15)
--- NOTE | 2020-10-31 23:53 | NURSING ---
Pt noted to be asystole on monitor;dtr and dtr-in-law at bedside, emotional support provided and then family left. Pt pronounced by staff RNs x2:absence of VS and reflexes. Dtr took all pt belongings from room, leaving only 2 rings on Left ring finger, one silver-colored metal w/clear stones and 1 band of copper color cut w/leaf pattern throughout. Body cleaned, new gown, IV and F/C removed.
--- NOTE | 2020-11-01 00:17 | PCM.DEATH ---
Preliminary Cause of Acute on chronic hypoxemic respiratory failure Date of Admission: 10/28/20 Date of : 10/31/20 - Principle Diagnosis Acute on chronic respiratory failure with hypoxia secondary to COVID-19 pneumonia and bilateral pulmonary embolus Problem List: Active and Suspected Problems Acute and chronic respiratory failure with hypoxia (Acute) Pneumonia due to COVID-19 virus (Acute) Cardiac enzymes elevated (Acute) Chronic kidney disease (CKD), stage III (moderate) (Suspected) Cognitive impairment (Suspected) Hospital Course 75-year-old female with a significant history of COPD on home oxygen; and CKD stage III; former tobacco abuse and who presented to the emergency department with shortness of breath. At the emergency department patient was given albuterol nebulization; Solu-Medrol; and Levaquin. An attempt was made to wean patient off nonrebreather mask but it was unsuccessful and patient was rather placed on BiPAP. Chest x-ray showed interstitial infiltrates. COVID-19 PCR was positive. Patient was admitted to the intensive care unit. Patient was placed on a course of remdesivir and Decadron. CT of chest with and without contrast showed bilateral pulmonary embolism. Patient received systemic anticoagulation. Her noninvasive positive pressure ventilation was adjusted and oxygen doses titrated. Patient required higher FiO2. Patient stated that she did not want intubation or cardiopulmonary resuscitation in the event of a cardiac arrest. Infectious disease and pulmonary medicine saw patient. Patient was confused and at times was not directable. She was pulling her Bipap secondary to likely claustrophobia. Airvo was substituted for BiPAP. However with time patient began to pull her airvo too. A decision was made by family to withdraw active care; and not to proceed with any noninvasive pressure ventilation and and that comfort measures only should be instituted. Subsequently all treatment medications were started. Patient was put on comfort medicines of morphine IV; Ativan IV; and atropine drops. Patient on 10/31/2020 at 2349. Her was confirmed by 2 nurses who examined him at the bedside. Immediate cause of : Acute on chronic hypoxemic respiratory failure: Days Underlying cause of (1) COVID-19 pneumonia: days ; (2) bilateral pulmonary embolism: days Other conditions contributing to contributing to : copd; and chronic kidney disease Patient is a former smoker and as such tobacco might have contributed to her as tobacco probably led to COPD. Inpatient E&M: [id number] [facility]
== END 2020-10-31 23:49 | DRG 177 ==
LOC: ED 18:06 → ICU 19:03 → MS2 10-29 14:50
PROVIDERS: Internal Medicine Infectious Disease; Admitting Provider Family Medicine; Emergency Provider Emergency Medicine; PCP Family Medicine; Visit Provider Internal Medicine
DX: U07.1 COVID-19 (principal); J96.21 Acute and chronic respiratory failure with hypoxia; J12.82 Pneumonia due to coronavirus disease 2019; I26.99 Other pulmonary embolism without acute cor pulmonale; J44.0 Chronic obstructive pulmonary disease with (acute) lower respiratory infection; N18.30 Chronic kidney disease, stage 3 unspecified; F32.9 Major depressive disorder, single episode, unspecified; F41.9 Anxiety disorder, unspecified; G31.84 Mild cognitive impairment of uncertain or unknown etiology; Z66 Do not resuscitate; Z79.01 Long term (current) use of anticoagulants; Z99.81 Dependence on supplemental oxygen; Z87.891 Personal history of nicotine dependence; Z79.899 Other long term (current) drug therapy
CPT/HCPCS: 36415; 36600; 71045; 71275; 80048; 80053; 80061; 80076; 82728; 82803; 83605; 83615; 83735; 83880; 84075; 84145; 84484; 85025; 85027; 85379; 85730; 86140; 87040; 87070; 87205; 87449; 87633; 87635; 93005; 94002; 94640; 94660; 97110; 97162; 97166; 97530; 99251; 99285; J7030; J7050; Q9967; A4216; G0463; J1940; J2405; U0002